=== PATIENT | female | born 1975 | race Caucasian/White ===

== ENCOUNTER 2019-10-20 15:54 | Emergency (ER) | payer OTHER, SELFPAY ==
[2019-10-20 16:16] VITALS: BP 131/85; PULSE 109; RESP 18; TEMP 36.9; O2SAT 100
--- NOTE | 2019-10-20 16:17 | ED.URI ---
HPI - URI/Sore Throat General Chief Complaint: Upper Respiratory Infection Stated Complaint: aches fever cough Time Seen by Provider: 10/20/19 16:17 Source: patient and RN notes reviewed History of Present Illness HPI Narrative: Patient is a 44-year-old female that presents the urgent care with complaints of body aches, fever, cough. Patient states that her symptoms started yesterday and she has been using ibuprofen and Coricidin. Patient is a current smoker. States that her cough is mostly nonproductive and denies any wheezing or shortness of breath. No other acute complaints. No acute distress noted. Patient read the plan of care. Related Data Home Medications Medication Instructions Recorded Confirmed simvastatin 10/20/19 venlafaxine 10/20/19 Allergies Allergy/AdvReac Type Severity Reaction Status Date / Time naproxen Allergy Unknown Verified 10/20/19 16:35 NAPROXEN SODIUM Allergy Unknown Uncoded 10/20/19 16:35 Review of Systems Review of Systems: Narrative: CONSTITUTIONAL: Reports a fever EYES: Denies visual changes, redness, or discharge. ENT: Denies rhinorrhea, congestion, sore throat, or otalgia. CARDIOVASCULAR: Denies chest pain, palpitations, or edema. RESPIRATORY: Reports of dry cough without dyspnea GASTROINTESTINAL: Denies abdominal pain, nausea, vomiting, or diarrhea. GENITOURINARY: Denies dysuria or hematuria. SKIN: Denies rash or itching. MUSCULOSKELETAL: Denies back pain, joint pain; reports of body aches NEUROLOGIC: Denies headache, numbness, or weakness. All other systems reviewed are negative, except as documented in HPI. [facility] Social History Social History Gender identity (if verbalized by the patient): Female Comments At the time of my signature, I reviewed and agree with the nursing past medical, surgical, social, and family history. There is no relevant family history pertinent to the patient complaint. Exam Narrative: Exam Narrative: GENERAL: This is a well-nourished, well-developed patient, appears slightly fatigued HEAD: normocephalic, atraumatic. EYES: PERRL. Sclera clear/white. Vision is grossly intact. EARS: External ears normal, auditory canals clear and without drainage, TMs normal without perforation. Hearing grossly intact. NOSE: External nose normal with no obvious nasal discharge, nares without redness, clear rhinorrhea. THROAT: Mucous membranes moist, posterior pharynx clear. Mild postnasal drainage NECK: Neck supple, non-tender without lymphadenopathy CARDIOVASCULAR: Regular rate and rhythm without murmurs, gallops, or rubs. RESPIRATORY: Clear to auscultation. Breath sounds equal bilaterally. No wheezes, rales, or rhonchi. SKIN: warm, intact with no suspicious lesions or rash, good texture and turgor. NEURO: awake, alert, and oriented to person, place and time. There were no obvious focal neurologic abnormalities. EXTREMITIES: No clubbing, cyanosis, or edema. Course Vital Signs Vital signs: Vital Signs Temperature 98.5 F 10/20/19 16:16 Pulse Rate 109 H 10/20/19 16:16 Respiratory Rate 18 10/20/19 16:16 Blood Pressure 131/85 10/20/19 16:16 Pulse Oximetry 100 10/20/19 16:16 Temperature 98.5 F 10/20/19 16:16 Pulse Rate 109 H 10/20/19 16:16 Respiratory Rate 18 10/20/19 16:16 Blood Pressure 131/85 10/20/19 16:16 Pulse Oximetry 100 10/20/19 16:16 Reviewed MDM - URI/Sore Throat MDM Narrative Medical decision making narrative: Reviewed lab results with the patient. She is aware that influenza swab was negative. Advised patient to treat symptoms with yenm-aln-hnndoqo medication such as Robitussin/Delsym for cough, Claritin for allergy-like symptoms, Flonase for nasal congestion, Tylenol/Motrin for fever/body aches. Increase fluids, especially water and rest. Use a humidifier. Be aware of symptoms of dehydration such as lethargy, confusion, increased weakness, dry lips, dry eyes. Follow-up with PCP within 2-5 days or for worsening
== END 2019-10-20 17:01 | disposition home or self-care (01) ==
PROVIDERS: Emergency Provider Nurse Practitioner Family
DX: J06.9 Acute upper respiratory infection, unspecified (principal); E78.00 Pure hypercholesterolemia, unspecified; F41.9 Anxiety disorder, unspecified; F32.9 Major depressive disorder, single episode, unspecified
CPT/HCPCS: 87804; 99202; G0463

== ENCOUNTER 2023-05-24 07:49 | Outpatient (CLI) | payer OTHER, SELFPAY | END 2023-05-24 07:50 | disposition home or self-care (01) | DX: H65.491 Other chronic nonsuppurative otitis media, right ear (principal) | CPT/HCPCS: 92557; 92567 ==

== ENCOUNTER 2024-10-23 18:57 | Emergency (ER) | payer OTHER, SELFPAY ==
[2024-10-23 19:04] VITALS: BP 147/82; PULSE 109; RESP 18; TEMP 36.6; O2SAT 100
--- OUTSIDE RECORDS SUMMARY | 2024-10-23 19:10 | XMS_ITS | Clinical Summary ---
Author Organization [facility] Address [address] [place] [address] Phone Care Team Providers Care Aluminum Pool Installer Name Role Phone Unavailable Unavailable Unavailable Reason for Visit and Chief Complaint GENERAL OFFICE VISIT Plan of Treatment No Plan of Treatment Recorded Assessments Includes: Assessments from this encounter No Assessments Recorded Medical Equipment - Implanted Devices Includes: Current Devices No Medical Equipment Recorded Medications Administered Includes: Administered Medications from this encounter No Administered Medications Recorded Results Includes: Results discussed during this encounter No Results Recorded For Specified Dates History of Present Illness Includes: History of Present Illness from this encounter No History of Present Illness Recorded Social History No Social History Recorded - Smoking Status Unknown Medical History Includes: Medical History addressed during this encounter No Medical History Recorded Family History Includes: Family History addressed during this encounter No Family History Recorded Review of Systems Includes: Review of Systems from this encounter No Review of Systems Recorded Mental Status Includes: Mental Status from this encounter No Mental Status Recorded Functional Status Includes: Functional Status from this encounter No Functional Status Recorded Physical Exam Includes: Physical Exam from this encounter No Physical Exam Recorded Encounters Encounter Provider Location Date Check-In Time Check- Out Time Diagnosis GENERAL OFFICE VISIT [facility] 0 2:05PM 11:59PM Clinical Notes Includes: Clinical Notes from this encounter No Clinical Notes Recorded
--- OUTSIDE RECORDS SUMMARY | 2024-10-23 19:10 | XMS_ITS ---
Care Plan - [facility] Created on: October 23, 2024 GUIDO BAUTISTA : 1975 Sex: Female Author Organization [facility] Address [address] [place] [address] Phone Care Team Providers Care Bleach Maker Name Role Phone Unavailable Unavailable Unavailable
--- OUTSIDE RECORDS SUMMARY | 2024-10-23 19:10 | XMS_ITS | Clinical Summary ---
Author Organization [facility] Address [address] [place] [address] Phone Care Team Providers Care General Manager [employer] Name Role Phone Unavailable Unavailable Unavailable Reason [...] Out Time Diagnosis GENERAL OFFICE VISIT [facility] 0 9:30AM 11:59PM Clinical Notes Includes: Clinical Notes from this encounter No Clinical Notes Recorded
--- OUTSIDE RECORDS SUMMARY | 2024-10-23 19:10 | XMS_ITS ---
Author Organization [facility] Address [address] [place] [address] Phone Care Team Providers Care Technical Sales Engineer Name Role Phone Unavailable Unavailable Unavailable Plan of Treatment No Plan of Treatment Recorded Assessments Includes: Assessments for all patient encounters No Assessments Recorded Medical Equipment - Implanted Devices Includes: Current and historical Devices No Medical Equipment Recorded Medications Administered Includes: Administered Medications in patient's chart No Administered Medications Recorded Results Includes: Results from 10/24/2023 through 10/23/2024 No Results Recorded For Specified Dates History of Present Illness History of Present Illness not supported for this document type No History of Present Illness Recorded Social History No Social History Recorded - Smoking Status Unknown Medical History Includes: Medical History in patient's chart No Medical History Recorded Family History Includes: Family History in patient's chart No Family History Recorded Review of Systems Review of Systems not supported for this document type No Review of Systems Recorded Mental Status No Mental Status Recorded Functional Status No Functional Status Recorded Physical Exam Physical Exam not supported for this document type No Physical Exam Recorded Clinical Notes Includes: Signed Clinical Notes starting from 09/02/2022 No Clinical Notes Recorded
--- OUTSIDE RECORDS SUMMARY | 2024-10-23 19:10 | XMS_ITS | Clinical Summary ---
Author Organization [facility] Address [address] [place] [address] Phone Care Team Providers Care Customer Relationship Specialist Name Role Phone Mikey Jones MD Primary Care Provider Unavaila ble Allergies No known active allergies Medications QUEtiapine (SEROquel) 25 MG Tablet Take 25 mg by mouth 2 times daily. Active Social History Tobacco Use Types Packs/Day Years Used Date Smoking Tobacco: Never Assessed Comments No Sex and Gender Information Value Date Recorded Sex Assigned at Not on file Legal Sex Female 7:54 PM CDT Gender Identity Not on file Sexual Orientation Not on file Last Filed Vital Signs Vital Sign Reading Time Taken Comments Blood Pressure 108/70 11/10/2023 4:15 AM CDT Pulse 97 11/10/2023 4:15 AM CDT Temperature 35.9 C (96.7 F) 11/09/2023 11:59 PM CDT Respiratory Rate 15 11/10/2023 2:15 AM CDT Oxygen Saturation 96% 11/10/2023 4:15 AM CDT Inhaled Oxygen Concentration - - Weight 50.8 kg (112 lb) 11/09/2023 11:59 PM CDT Height 157.5 cm (5' 2 ) 11/09/2023 11:59 PM CDT Body Mass Index 20.49 11/09/2023 11:59 PM CDT Plan of Treatment Health Maintenance Due Date Last Done Comments Hepatitis C Virus (HCV) Screening 1975 Hepatitis B Immunization (1 of 3 - 19+ 3-dose series) 1993 Pap Smear 1995 Cervical Cancer Screening (CCS) 01/18/2004 HPV/Cotest 01/18/2004 Cologuard 01/18/2024 Immunochemical Fecal Occult Blood 01/18/2024 Zoster Immunization (1 of 2) 01/18/2024 Influenza Immunization (#1) 04/14/20242 12/2022, 05/24/2022, 05/19/2021, Additional history exists SARS-COV-2 Immunization ( season) 2024 08/21/2021, 11/02/2020, 09/22/2020 Mammogram 05/06/2024 05/06/2023, 04/14, 04/14/2021, Additional history exists Pneumococcal Immunization (50+ years) (3 of 3 - PCV20 or PCV21) 06/14/2024 06/14/2019, 05/21/2018 Colonoscopy 01/30/2033 01/30/2023 Colorectal Cancer Screening 01/30/2033 Respiratory Syncytial Virus (RSV) Immunization (Adult) (1 - 1-dose 75+ series) 2049 01/30/2023 DTaP/Tdap/Td Immunization Discontinued 06/26/2018 TdaP Immunization Completed 06/26/2018 Pneumococcal Immunization Combined Discontinued 06/14/2019, 05/21/2018 Discussion re Starting/Frequency of Mammograms Discontinued 05/06/2023, 04/23/2022, 04/14/2021, Additional history exists Meningococcal Immunization (ACWY) Aged Out No longer eligible based on patient's age to complete this topic Rotavirus Immunization Aged Out No lo nger eligible based on patient's age to complete this topic Procedures Procedure Name Priority Date/Time Associated Diagnosis Comments LIBBY SCREENING CHLOE W IMPL DIGITAL W CAD W MARIO Routine 03/22/2019 8:35 AM CDT Visit for screening mammogram from Last 3 Months or Most Recently Relevant to Health Maintenance Results * LIBBY SCREENING CHLOE W IMPL DIGITAL W CAD W MARIO (03/22/2019 8:35 AM CDT) Anatomical Region Laterality Modality breast Bilateral Mammography 03/22/2019 7:56 AM CDT Narrative 03/22/2019 4:02 PM CDT - LIBBY SCREENING CHLOE W IMPL DIGITAL W CAD W MARIO BILATERAL DIGITAL SCREENING MAMMOGRAM 3D/2D WITH CAD WITH MEDIOLATERAL OBLIQUE CRANIOCAUDAL WITH AUGMENTATION: 03/22/2019 The study was acquired using digital technology and interpreted from soft copy. Current study was also evaluated with ICAD version 7.2. CLINICAL: Routine screening. Patient has no complaints. No personal history of cancer. Maternal cousin had breast cancer. COMPARISONS: Comparison is made to exams dated: 03/16/2018, 07/20/2016, and 02/24/2015 [facility]. BREAST TISSUE:The tissue of both breasts is heterogeneously dense. This may lower the sensitivity of mammography. FINDINGS: Bilateral breast implants are stable and intact. No significant masses, calcifications, or other findings are seen in either breast. There has been no significant interval change. IMPRESSION: BI-RAD 1 NEGATIVE There is no mammographic evidence of malignancy. A 1 year screening mammogram is recommended. The patient has been or will be contacted. The patient will be entered into a reminder system with a target due date of 1 year for her next screening exam. Electronically signed by: Tg vickers/darrel:03/22/2019 13:23:47 Allergist/Immunologist Physician: Siena TIPTON)([place]), [facility] letter sent: Normal Exam Reading location: [facility] BI-RADS: 1 Negative Procedure Note Tg Galeano MD - 03/22/2019 - LIBBY SCREENING CHLOE W IMPL DIGITAL W CAD W MARIO BILATERAL DIGITAL SCREENING MAMMOGRAM 3D/2D WITH CAD WITH MEDIOLATERAL OBLIQUE CRANIOCAUDAL WITH AUGMENTATION: 03/22/2019 The study was acquired using digital technology and interpreted from soft copy. Current study was also evaluated with ICAD version 7.2. CLINICAL: Routine screening. Patient has no complaints. No personal history of cancer. Maternal cousin had breast cancer. COMPARISONS: Comparison is made to exams dated: 03/16/2018, 07/20/2016, and 02/24/2015 [facility]. BREAST TISSUE:The tissue of both breasts is heterogeneously dense. This may lower the sensitivity of mammography. FINDINGS: Bilateral breast implants are stable and intact. No significant masses, calcifications, or other findings are seen in either breast. There has been no significant interval change. IMPRESSION: BI-RAD 1 NEGATIVE There is no mammographic evidence of malignancy. A 1 year screening mammogram is recommended. The patient has been or will be contacted. The patient will be entered into a reminder system with a target due date of 1 year for her next screening exam. Electronically signed by: Tg vickers/darrel:03/22/2019 13:23:47 Allergist/Immunologist Physician: Siena SALAZAR(R)(M), [facility] letter sent: Normal Exam Reading location: [facility] BI-RADS: 1 Negative Mikey Jones MD IMG MAMMO ORDERABLES Final Resu lt from Last 3 Months or Most Recently Relevant to Health Maintenance Insurance [employer] Care Teams Customer Relationship Specialist Relationship Specialty Start Date End Date Mikey Jones MD [address] [place] [id number] PCP - General Internal Medicine 03/16/18
--- OUTSIDE RECORDS SUMMARY | 2024-10-23 19:11 | XMS_ITS | Referral Summary ---
Author Organization [facility] Building [address] Address [address] [place] [address] Care Team Providers Care Director Business Management Name Role Phone Alvarez Galvez Primary Care Provider Encounters Date Type Department Care Team Description 08/26/2024 Orders Only [facility] Medical [facility] at [address] [place] [id number] Alvarez Galvez PA Need for hepatitis C screening test (Primary Dx); B12 deficiency; Vitamin D deficiency; Primary hypertension; Hyperlipidemia, unspecified hyperlipidemia type 08/26/2024 1:30 PM MEDICAL SCIENTIST Office Visit [facility] Medical [facility] at [address] [phone] Alvarez Galvez PA Generalized anxiety disorder (Primary Dx); Bullous emphysema (HCC); Recurrent major depressive disorder, in full remission; Pure hypercholesterolemia; Primary hypertension; Vitamin D deficiency; Tobacco abuse from Last 3 Months Allergies Active Allergy Reactions Criticality Noted Date Comments Citalopram Other (See comments) Low 09/14/2017 Increased anxiety; shakiness; dizziness. Naproxen Rash,Other (See comments),Urticaria Medium Reaction: ERYTHEMA, , , Reaction: Rash, , Medications cholecalciferol (VITAMIN D-3) 2000 unit capsule 05/14/20 22 Active ipratropium-albut Jyoti (DUO-NEB) 0.5-2.5 mg/3 mL nebulizer solutionIndicatio ns:Chronic Obstructive Pulmonary Disease with Bronchospasms Take 3 mL by nebulization 4 (four) times a day as needed for wheezing or shortness of breath 90 mL 11 11/18/19 23 Active albuterol HFA (PROVENTIL HFA,VENTOLIN HFA,PROAIR HFA) 90 mcg/actuation inhaler INHALE 2 PUFFS NEEDED FOR WHEEZING OR SHORTNESS OF BREATH 8.5 each 11 05/30/20 24 025 Active venlafaxine XR (EFFEXOR-XR) 150 mg 24 hr capsule TAKE 1 CAPSULE BY MOUTH EVERY DAY 90 capsule 3 07/15/20 24 Active busPIRone (BUSPAR) 7.5 mg tabletIndications :Generalized Anxiety Disorder Take 1 tablet (7.5 mg total) by mouth 2 (two) times a day Active losartan (COZAAR) 25 mg tablet Take 1 tablet (25 mg total) by mouth daily 90 tablet 3 08/26/19 25 026 Active atorvastatin (LIPITOR) 40 mg tablet Take 1 tablet (40 mg total) by mouth daily 90 tablet 3 08/26/19 25 Active Active Problems Problem Noted Date Diagnosed Date Dysfunction of both eustachian tubes 07/08/2024 Assessment & Plan (07/08/2024 1:36 PM MEDICAL SCIENTIST): Offered continued observation versus T-tube removal today in the Office Right T-tube removed today If Right ear pain persists after the next three days, call Dentist office for evaluation or call for physical therapy referral for neck Follow up in 9 months for Left ear tube check Sleep disturbance 11/14/2023 Assessment & Plan (11/15/2023 6:17 AM CDT): -chronic, worsening -currently takes 25 mg of Seroquel nightly -patient reports she does not believe the Seroquel is helping as much as it used to -patient reports she will wake up multiple times a night -likely associated with increased anxiety, will trial increased dose of Seroquel to see how patient tolerates larger dose -increase Seroquel to 50 mg nightly -follow up in 1 month Chronic otitis media of right ear with effusion 03/31/2023 Assessment & Plan (03/31/2023 8:52 AM CDT): Nasal saline spray (Simply saline, Little Remedies, [place]wick, Jarratt) 2 second sprays or 2 squeezes into each nostril while looking down over the sink, do not need to sniff in. Followed by Flonase 2 sprays into each nostril while looking down over the sink, do not sniff in or blow nose after use for at least 30 minutes daily Hearing test [facility] Call with results plan Right myringotomy with T-tube placement in Office or Operating Room Consider CT temporal bone scan based on results Memory loss 03/14/2022 Assessment & Plan (03/14/2022 3:15 PM CDT): Check b12 adsn referal to neuro for eval some degreee of depressoin and trreated and but clear that is at faluult. Snores 09/13/2021 Assessment & Plan (09/13/2021 1:57 PM MEDICAL SCIENTIST): Stay off back idealy get studied as has some qualities of sleep apnea. The morning fatigue and this can become a pernmanent feature that is not reversable oral mough pieces anoointernet to javi into wear shirt with tennis ball to criss off back at night a trick Neuropathic pain, leg, left 09/13/2021 Assessment & Plan (09/13/2021 2:03 PM MEDICAL SCIENTIST): Intermittent l calf hot then gone Had n cuttock in past. No pain no timing not wrose ask to pay attentino what setoff or refilef. Referral neuro when wants /willing IGT (impaired glucose tolerance) 09/13/2021 Assessment & Plan (03/14/2022 3:15 PM CDT): a1c at 5.4 Assessment & Plan (09/13/2021 6:01 PM MEDICAL SCIENTIST): Fasting 106 and check a1c on return Orthostatic hypotension 05/03/2021 Assessment & Plan (09/13/2021 1:54 PM MEDICAL SCIENTIST): Stable and rarely aware of nl tsh and nl cortisol Assessment & Plan (05/03/2021 3:51 PM CDT): Takes Water And eat all meals os some kind. Check cortixol .tsh cmp labs and see if suppport helps. Asks to wait and if not doing well then call to seetup early and see Cervical spine pain 05/03/2021 Assessment & Plan (05/03/2021 3:47 PM CDT): Snap crackle pop and pain with moveing ask to do self pt with pressing against hand and not ving head cshould help formal pt if need but thaty appears the headache at mid to higher c spine. Re maryal onruetnr Vitamin D deficiency 01/12/2021 Assessment & Plan (03/14/2022 3:14 PM CDT): waw 6 and now 41 start 1-1999 a day and check onreutrn and bring in what taking Assessment & Plan (09/13/2021 2:04 PM MEDICAL SCIENTIST): Stay on oand check Assessment & Plan (01/12/2021 3:31 PM CDT): Start 100 mg vit d and check on return Osteopenia of neck of femur 09/09/2020 Assessment & Plan (09/09/2020 3:55 PM MEDICAL SCIENTIST): Check d on reutrn labs to confirm nl. Tobacco abuse 05/20/2020 Assessment & Plan (08/26/2024 9:59 AM MEDICAL SCIENTIST): The patient was advised to quit smoking; the risks of continued tobacco use discussed. Assessment & Plan (06/28/2024 5:37 PM MEDICAL SCIENTIST): The patient was advised to quit smoking; the risks of continued tobacco use discussed. Assessment & Plan (03/19/2024 9:58 AM CDT): The patient was advised to quit smoking; the risks of continued tobacco use discussed. Assessment & Plan (09/15/2023 1:49 PM MEDICAL SCIENTIST): Continue cessation. Commended on her efforts Assessment & Plan (03/14/2023 12:51 PM CDT): She was advised to quit smoking; the risks of continued tobacco use discussed. Assessment & Plan (12/23/2022 10:43 AM CDT): The patient was advised to quit smoking; the risks of continued tobacco use discussed. Assessment & Plan (11/07/2022 12:31 PM CDT): She was advised to quit smoking; the risks of continued tobacco use discussed. Assessment & Plan (10/21/2022 10:28 AM MEDICAL SCIENTIST): She was advised to quit smoking; the risks of continued tobacco use discussed. Assessment & Plan (09/14/2022 8:51 AM MEDICAL SCIENTIST): She was advised to quit smoking; the risks of continued tobacco use discussed. Assessment & Plan (04/15/2022 9:20 AM CDT): She was advised to quit smoking; the risks of continued tobacco use discussed. Assessment & Plan (03/03/2021 12:32 PM CDT): She was advised to quit smoking; the risks of continued tobacco use discussed. Assessment & Plan (09/15/2020 10:27 AM MEDICAL SCIENTIST): She was advised to quit smoking; the risks of continued tobacco use discussed. Assessment & Plan (09/09/2020 3:48 PM MEDICAL SCIENTIST): Active smoker Assessment & Plan (08/11/2020 8:09 AM MEDICAL SCIENTIST): She was advised to quit smoking; the risks of continued tobacco use discussed. Menopause 04/09/2020 Assessment & Plan (09/09/2020 3:49 PM MEDICAL SCIENTIST): Progressive hot flashes in a n active smoker .higher ascvd risk with Hormone replacments and smoking the stain can reduce risk to some etent but not known how much otc vegitable sub for hormones can helpsuch s black cohash. sooy products but With possible hormone benefits and side effects the eeffexor is likely having some suppressor effects on the hot flashes but not enough Assessment & Plan (04/09/2020 3:49 PM CDT): Check bmd the week bedforfe with labs Right ear pain 02/26/2019 Assessment & Plan (07/08/2024 1:34 PM MEDICAL SCIENTIST): Right T-tube removed today If Right ear pain persists after the next three days, call Dentist office for evaluation or call for physical therapy referral for neck Follow up in 9 months for Left ear tube check Assessment & Plan (06/14/2019 3:57 PM CDT): Referred pain and tmj but no infection Assessment & Plan (02/26/2019 2:33 PM CDT): Nl ear but tmj source pain Gastroesophageal reflux disease without esophagi tis 02/26/2019 Assessment & Plan (06/14/2019 3:56 PM CDT): gerd breaktkhru 2 times a week Assessment & Plan (03/12/2019 8:42 AM CDT): Cnt. With current Zantac. Smoking cessation encouraged. Avoidance of EtOH use, and dietary modifications also advised Assessment & Plan (02/26/2019 2:35 PM CDT): blockup head of bed. lilmit acids. Denies carbonation. Limit fats. Consider zantac to start and work up as needeed. Hypertension 01/29/2019 Assessment & Plan (08/26/2024 9:58 AM MEDICAL SCIENTIST): Recommend DASH diet, heart healthy lifestyle, exercise. Discussed the risks of hypertension. Assessment & Plan (03/19/2024 7:14 AM CDT): Recommend DASH diet, heart healthy lifestyle, exercise. Discussed the risks of hypertension. Assessment & Plan (02/19/2024 12:52 PM CDT): Recommend DASH diet, heart healthy lifestyle, exercise. Discussed the risks of hypertension. Assessment & Plan (09/15/2023 12:24 PM MEDICAL SCIENTIST): Recommend DASH diet, heart-healthy lifestyle, exercise. Discussed the risks of hypertension. Assessment & Plan (03/14/2023 12:51 PM CDT): Recommend DASH diet, heart-healthy lifestyle, exercise. Discussed the risks of hypertension. Assessment & Plan (12/23/2022 10:43 AM CDT): Recommend DASH diet, heart healthy lifestyle, exercise. Discussed the risks of hypertension. Assessment & Plan (10/21/2022 10:28 AM MEDICAL SCIENTIST): Recommend DASH diet, heart-healthy lifestyle, exercise. Discussed the risks of hypertension. Assessment & Plan (09/14/2022 8:51 AM MEDICAL SCIENTIST): Recommend DASH diet, heart-healthy lifestyle, exercise. Discussed the risks of hypertension. Assessment & Plan (03/14/2022 3:16 PM CDT): bp good and keep same Hypertension, Medical treament revolves around weight control, salt management, and meds when necessary. long as weight loss is necessary and you are able to drop weight we can cont to monitor the blood pressure and not add meds. Once the weight is not changing then it becomes nesessary to add meds to be able to reach the goal bp. Assessment & Plan (09/13/2021 1:53 PM MEDICAL SCIENTIST): The bp Ok and keep stable . Hypertension, Medical treament revolves around weight control, salt management, and meds when necessary. long as weight loss is necessary and you are able to drop weight we can cont to monitor the blood pressure and not add meds. Once the weight is not changing then it becomes nesessary to add meds to be able to reach the goal bp. Assessment & Plan (03/03/2021 12:32 PM CDT): Recommend DASH diet, heart-healthy lifestyle, exercise. Discussed the risks of hypertension. Assessment & Plan (01/12/2021 3:32 PM CDT): tahe bp high nl and monitor and adjust if stays up on reutrnHypertension, Medical treament revolves around weight control, salt management, and meds when necessary. long as weight loss is necessary and you are able to drop weight we can cont to monitor the blood pressure and not add meds. Once the weight is not changing then it becomes nesessary to add meds to be able to reach the goal bp. Assessment & Plan (09/09/2020 3:50 PM MEDICAL SCIENTIST): bp controlled and self montior and Cont diet and wt limitsHypertension, Medical treament revolves around weight control, salt management, and meds when necessary. long as weight loss is necessary and you are able to drop weight we can cont to monitor the blood pressure and not add meds. Once the weight is not changing then it becomes nesessary to add meds to be able to reach the goal bp. Assessment & Plan (08/11/2020 8:08 AM MEDICAL SCIENTIST): Recommend DASH diet, heart-healthy lifestyle, exercise. Discussed the risks of hypertension. Assessment & Plan (04/09/2020 3:46 PM CDT): bp good and no chagdsHypertension, Medical treament revolves around weight control, salt management, and meds when necessary. long as weight loss is necessary and you are able to drop weight we can cont to monitor the blood pressure and not add meds. Once the weight is not changing then it becomes nesessary to add meds to be able to reach the goal bp. Assessment & Plan (01/07/2020 3:43 PM CDT): Well c ontrolled and no changesHypertension, Medical treament revolves around weight control, salt management, and meds when necessary. long as weight loss is necessary and you are able to drop weight we can cont to monitor the blood pressure and not add meds. Once the weight is not changing then it becomes nesessary to add meds to be able to reach the goal bp. Assessment & Plan (12/16/2019 3:06 PM CDT): Controlled and monitgor Assessment & Plan (06/14/2019 3:56 PM CDT): bp controll and no cohangs Assessment & Plan (05/06/2019 1:58 PM CDT): Stop loisinopril for now and if need bp meds then dyazide Assessment & Plan (03/12/2019 8:43 AM CDT): Normotensive, much improved over last 5 weeks of therapy. Pt was encouraged to Cnt. With current dosing of lisinopril. Repeat CMP in 3 weeks prior to CPE. Encouraging low-fat, dash diet, mild to moderate daily exercise, working toward smoking cessation. Assessment & Plan (02/26/2019 2:33 PM CDT): bp dramatically beter with only la little meds and stay onHypertension, Medical treament revolves around weight control, salt management, and meds when necessary. long as weight loss is necessary and you are able to drop weight we can cont to monitor the blood pressure and not add meds. Once the weight is not changing then it becomes nesessary to add meds to be able to reach the goal bp. Assessment & Plan (01/29/2019 8:48 AM CDT): The bp stress test jumped to 1989 and several bp since highn. Start low dose meds with lisinopril 2.5 and adjust up as needed. Seeing a htn reponce to stress and should push backHypertension, Medical treament revolves around weight control, salt management, and meds when necessary. long as weight loss is necessary and you are able to drop weight we can cont to monitor the blood pressure and not add meds. Once the weight is not changing then it becomes nesessary to add meds to be able to reach the goal bp. Benign paroxysmal positional vertigo due to bilateral vestibular disorder 05/21/2018 Assessment & Plan (05/06/2019 1:57 PM CDT): Stop salt Inner ear movement canalith repositioning off lisinopri in case need to start dyazide Assessment & Plan (05/21/2018 9:13 AM CDT): Periodica short spells of vertigo.not chanagingl not done the inner ear exercises. Bullous emphysema 12/20/2017 Assessment & Plan (09/13/2021 1:55 PM MEDICAL SCIENTIST): Ongoing smoker and aware of need to quit Assessment & Plan (09/09/2020 3:52 PM MEDICAL SCIENTIST): Fall flu shots and cont to smoke and worsen the risk Assessment & Plan (04/09/2020 3:45 PM CDT): Altaf with fvc 102 ands fev`1 92 and fev1% 75 nl. [id number] 65 and demo's [id number] defectg Assessment & Plan (01/07/2020 3:42 PM CDT): Still smoking and finds br eo helpful understands the need to Quit. Assessment & Plan (12/16/2019 3:04 PM CDT): Post viral bronchial flair. quiting smoking moset likeoy only good answer and will ing and plans to quit. Proposal pred pulse and amoxil for short stent and re eval in 4-6 wks post quit. smputum camples and Ct if Still cough not miles. Assessment & Plan (06/14/2019 4:49 PM CDT): Sp;iro at fvc 83 and fev1 62 with fev1% 63. 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 .took flu shot already. Given the underlying lung issue will suggest pneumonia shots and take botho. p13 now and 23 in a yr Assessment & Plan (04/19/2018 9:40 AM CDT): quiting important but not going to work until nerves settled. So await better nerves before quiting Assessment & Plan (12/20/2017 5:07 PM CDT): Once nerves controlled . Quit smoking. Check altaf. Prior llung collapse. Fall flu shots and p 13 and 23. Had p23 2010 and neeeds 2012 now and tony get later on. p23 repeat probably 2020 +- Pure hypercholesterolemia 12/20/2017 Assessment & Plan (08/26/2024 9:58 AM MEDICAL SCIENTIST): Counseled on heart diet exercise Assessment & Plan (03/19/2024 7:14 AM CDT): Counseled on heart diet exercise Assessment & Plan (09/13/2021 6:02 PM MEDICAL SCIENTIST): On meds and needs labs on return Assessment & Plan (01/12/2021 3:31 PM CDT): ldl at 79 and keep here And stay onYour cholesterol in the form of ldl (bad) cholesterol,hdl(good) cholesterol and triglycerides are monitored. The triglycerides respond to reduction/controll of your simple carbs/sugars In such items as sugared soda/sweet tea along with fruit juices(containing natural sugar) even if no added sugar is added. LDL cholesterol is reduced with reducing daily intake of fats and dionisio. saturated fats. The monosaturated fats like olive oil are not harmful except in the calories they contained. Whole milk cheese needs to be remembered along with whole milk products And limited. Assessment & Plan (09/09/2020 3:51 PM MEDICAL SCIENTIST): ldl at 99 and on 20 atorvastin . Given active smoker would sugeste pushinghte ldl to lower and go to 40 on atorvasitn if Tolerates. Your cholesterol in the form of ldl (bad) cholesterol,hdl(good) cholesterol and triglycerides are monitored. The triglycerides respond to reduction/controll of your simple carbs/sugars In such items as sugared soda/sweet tea along with fruit juices(containing natural sugar) even if no added sugar is added. LDL cholesterol is reduced with reducing daily intake of fats and dionisio. saturated fats. The monosaturated fats like olive oil are not harmful except in the calories they contained. Whole milk cheese needs to be remembered along with whole milk products And limited. Assessment & Plan (04/09/2020 3:45 PM CDT): ldl at 93 and wihtout c.o and cont meds as onYour cholesterol in the form of ldl (bad) cholesterol,hdl(good) cholesterol and triglycerides are monitored. The triglycerides respond to reduction/controll of your simple carbs/sugars In such items as sugared soda/sweet tea along with fruit juices(containing natural sugar) even if no added sugar is added. LDL cholesterol is reduced with reducing daily intake of fats and dionisio. saturated fats. The monosaturated fats like olive oil are not harmful except in the calories they contained. Whole milk cheese needs to be remembered along with whole milk products And limited. Assessment & Plan (01/07/2020 3:45 PM CDT): Switch to atorvastin 20 and tony expect ot need to go up .Your cholesterol in the form of ldl (bad) cholesterol,hdl(good) cholesterol and triglycerides are monitored. The triglycerides respond to reduction/controll of your simple carbs/sugars In such items as sugared soda/sweet tea along with fruit juices(containing natural sugar) even if no added sugar is added. LDL cholesterol is reduced with reducing daily intake of fats and dionisio. saturated fats. The monosaturated fats like olive oil are not harmful except in the calories they contained. Whole milk cheese needs to be remembered along with whole milk products And limited. Assessment & Plan (12/16/2019 3:05 PM CDT): ldl at 150 and wqnt lower but if quits then focus on controlling chol. Your cholesterol in the form of ldl (bad) cholesterol,hdl(good) cholesterol and triglycerides are monitored. The triglycerides respond to reduction/controll of your simple carbs/sugars In such items as sugared soda/sweet tea along with fruit juices(containing natural sugar) even if no added sugar is added. LDL cholesterol is reduced with reducing daily intake of fats and dionisio. saturated fats. The monosaturated fats like olive oil are not harmful except in the calories they contained. Whole milk cheese needs to be remembered along with whole milk products And limited. Assessment & Plan (06/14/2019 3:54 PM CDT): ldl up with missing some meds and tony not change Assessment & Plan (01/29/2019 8:49 AM CDT): The ldl at 108 and droped and leave for now. Look given risk to tighten over time once stop move bp medsYour cholesterol in the form of ldl (bad) cholesterol,hdl(good) cholesterol and triglycerides are monitored. The triglycerides respond to reduction/controll of your simple carbs/sugars In such items as sugared soda/sweet tea along with fruit juices(containing natural sugar) even if no added sugar is added. LDL cholesterol is reduced with reducing daily intake of fats and dionisio. saturated fats. The monosaturated fats like olive oil are not harmful except in the calories they contained. Whole milk cheese needs to be remembered along with whole milk products And limited. Assessment & Plan (09/24/2018 8:19 AM MEDICAL SCIENTIST): ldl at 131 and target to drp given ongoing smomking and isolated old white mater change. willgo to 20 mg and try to push to Or below 100.Your cholesterol in the form of ldl (bad) cholesterol,hdl(good) cholesterol and triglycerides are monitored. The triglycerides respond to reduction/controll of your simple carbs/sugars In such items as sugared soda/sweet tea along with fruit juices(containing natural sugar) even if no added sugar is added. LDL cholesterol is reduced with reducing daily intake of fats and dionisio. saturated fats. The monosaturated fats like olive oil are not harmful except in the calories they contained. Whole milk cheese needs to be remembered along with whole milk products And limited. Assessment & Plan (05/21/2018 9:15 AM CDT): ldl at 129 and less then 130 nl. Watch dietYour cholesterol in the form of ldl (bad) cholesterol,hdl(good) cholesterol and triglycerides are monitored. The triglycerides respond to reduction/controll of your simple carbs/sugars In such items as sugared soda/sweet tea along with fruit juices(containing natural sugar) even if no added sugar is added. LDL cholesterol is reduced with reducing daily intake of fats and dionisio. saturated fats. The monosaturated fats like olive oil are not harmful except in the calories they contained. Whole milk cheese needs to be remembered along with whole milk products And limited. Assessment & Plan (12/20/2017 4:19 PM CDT): ldl to 120 and as on 5mg would go to 10 to controll at les then 100. Your cholesterol in the form of ldl (bad) cholesterol,hdl(good) cholesterol and triglycerides are monitored. The triglycerides respond to reduction/controll of your simple carbs/sugars In such items as sugared soda/sweet tea along with fruit juices(containing natural sugar) even if no added sugar is added. LDL cholesterol is reduced with reducing daily intake of fats and dionisio. saturated fats. The monosaturated fats like olive oil are not harmful except in the calories they contained. Whole milk cheese needs to be remembered along with whole milk products And limited. 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 Talks with dental provides for tricks. Generalized anxiety disorder 09/12/2017 Assessment & Plan (11/15/2023 6:20 AM CDT): -chronic, worsening -patient currently takes 150 mg Effexor daily -patient reports new stressors in life including new job and new grandchild on the way -patient reports her increased anxiety is not constant, but it comes and goes -patient previously took Xanax in the past for anxiety, but she states she did not like how it made her feel so she weaned herself off -BuSpar 7.5 mg b.i.d. as needed prescribed Assessment & Plan (10/13/2017 3:04 PM MEDICAL SCIENTIST): Patient has noted improvement in anxiety, depression, and episodes of panic attacks. She would like to trial higher dose of venlafaxine and evaluate her response. She has previously been very sensitive to medications and in lieu of sending and 75 mg tablet she is going to start by taking two 37.5 mg tablets and evaluating her response. If she tolerates 75 mg without ill side effects she was encouraged to call us back so we can send in adequate supply of medications. Patient is due for refill on her Xanax she has been able to cut back from 3 tablets daily to 1.5 tablets daily. For these reasons, I am going to decrease her script from 90 tablets to 60 tablets. We will continue to evaluate her response to treatment. Her intent is to wean off the Xanax completely. She was congratulated on her efforts thus far. Assessment & Plan (09/12/2017 2:32 PM MEDICAL SCIENTIST): Patient is currently taking Xanax 0.5 mg 3 times daily for her chronic anxiety and panic attacks. We discussed the addictive this of this medication. She understands that we attempt to avoid routine use of this medication. Patient states she does not like being on the medication. She states she has never tried anything for her anxiety other than the Xanax as that is what her prior primary care provider had given her. She is not adverse to weaning off of this medication as she states, I feel like a drug addict when people find out I'm on it . I would like to get her citalopram to a therapeutic dose and so she will wait 2 weeks before attempting to begin to wean her Xanax. Initially, she is encouraged to take half a tablet 3 times daily. We will discuss further weaning when she returns for follow-up in 1 month. She is encouraged to contact the office in the interim with any additional questions or concerns. Resolved Problems Problem Noted Date Diagnosed Date Resolved Date Edema of both lower legs 02/19/202403/2024 Assessment & Plan (02/19/2024 3:33 PM CDT): Will send over Lasix 20mg daily for leg swelling. Have patient return for BNP in one week Acute midline low back pain without sciatica 02/19/2024 Acute recurrent maxillary sinusitis 06/23/2023 09/15/2023 Assessment & Plan (06/23/2023 1:18 PM MEDICAL SCIENTIST): Call if no improvement in muffled hearing in 6 weeks Ear tube check in 9 months, earlier with ear drainage Encounter for screening colonoscopy 12/16/2022 09/15/2023 Abnormal EKG 10/26/2022 09/15/2023 Hyperlipidemia 10/26/2022 09/15/2023 Chest wall syndrome 12/02/2021 10/22/19 Assessment & Plan (12/02/2021 2:55 PM CDT): Point tender post r And ant . Trial lidocaine patch possible referral to pt reji blunt. Urine dip neg for blood or abn nothing to suport renal cause for pain as well as not in correct Place and Point tender Aleve optnio pt optins and use lidcaine patch trial and call if Feels workis Carpal tunnel syndrome of right wrist 12/10/2020 01/24/2022 Cubital tunnel syndrome on right 12/10/2020 01/24/2022 Viral upper respiratory tract infection 09/24/2018 02/26/2019 Assessment & Plan (09/24/2018 8:20 AM MEDICAL SCIENTIST): Suggest reg use of flonase to try to get to clear faster and help with ears. No ear infectgoni. Light headed 04/19/2018 03/14/2023 Assessment & Plan (05/03/2021 3:39 PM CDT): discriptoin of light headed with tunnelling of visoin not to skip adan fluid Regularly Wear suppoort hose and leave on during day. Suggest saling fods. Assessment & Plan (04/19/2018 9:42 AM CDT): Trial inner ear exercises PE (physical exam), annual 12/20/2017 0 01/24/2022 Assessment & Plan (09/13/2021 2:02 PM MEDICAL SCIENTIST): Fadi up to date early for colon . Got flu shots and covid shiots. Up to date on tetnus . Consider referaql to neuro for r calk numb Assessment & Plan (09/09/2020 3:54 PM MEDICAL SCIENTIST): Keeps wt controlled Colon no due yet. Fadi up to date. Fall flu lshots. tetnus up to da te. repet bmd in 18 months to tract mild osteopenia Assessment & Plan (12/20/2017 4:20 PM CDT): Screening labs good. Cont well woman exam and can do here if wish. Watch sun to heavey dose. Fall flu shots and getthe 2 pneumonia shots. Consider the dtap for pertussis protectino. Hand dermatitis 12/20/2017 05/21/2018 Assessment & Plan (12/20/2017 4:22 PM CDT): Trial steroid cream and moisterizers. And limit soap. Skin lesion 12/20/2017 05/21/2018 Assessment & Plan (12/20/2017 4:23 PM CDT): Put ruler against and take pic and m onitor and if things changes then take you.pic and derm to eval for differences. Thoracic back pain 11/08/2017 8 Assessment & Plan (11/08/2017 3:25 PM CDT): Chest x-ray ordered office today in order to evaluate for presence of pneumothorax with inhalation exhalation supine study. I recommended that will call patient regarding results of testing if that tonight and tomorrow to let her know if there is a concern pneumothorax. I actually advised patient that she may be best going to ER but she declined at this time as she wants to 1st to this chest x-ray to rule out pneumothorax and move forward with other testing. Certainly if symptoms do get worse over night she will go to ER as was clinically recommended. In the interim I recommended limiting upper extremity exercises or weight-bearing anything beyond 5 lb. Will follow-up regarding results of testing if pneumothorax as noted, she will be instructed to go to ER for further evaluation and management I did advise her that if chest x-ray is negative for pneumothorax and no abnormalities were found will follow-up with her here in the office, complete a T-spine x-ray to look it any thoracic dislocations or subluxations of any sort, try NSAID [id number] an along with stretching/he denies application BMI 21.0-21.9, adult 11/08/2017 024 Assessment & Plan (11/14/2023 11:39 AM CDT): Wt Readings from Last 3 Encounters: 11/14/23 53.9 kg (118 lb 14.4 oz) 09/15/23 53.8 kg (118 lb 9.6 oz) 06/23/23 52.6 kg (116 lb) Body mass index is 21.74 kg/m . -Stable -Discussed recommendations for exercise at least 30 minutes moderate to vigorous exercise most days of the week. (minimum 150 minutes weekly) -Discussed importance of well-balanced diet. Assessment & Plan (09/13/2021 1:53 PM MEDICAL SCIENTIST): Keep wt stable Assessment & Plan (01/12/2021 3:34 PM CDT): Work to [facility] stable Assessment & Plan (04/09/2020 3:44 PM CDT): Stable and stay here Assessment & Plan (01/07/2020 3:46 PM CDT): Work to keep wt stable Assessment & Plan (12/16/2019 3:07 PM CDT): Work to hold a bout same Assessment & Plan (06/14/2019 3:55 PM CDT): Stable wt Assessment & Plan (01/29/2019 8:52 AM CDT): Work to keep wt stable Assessment & Plan (04/19/2018 9:40 AM CDT): Work to keep wt stable Assessment & Plan (12/20/2017 4:17 PM CDT): Work to keep wt up Assessment & Plan (11/08/2017 3:22 PM CDT): Recommended patient to continue to increase heart healthy diet with adequate fruits, vegetables, and plenty of water along with mild-moderate daily exercise as tolerated. Moderate episode of recurren t major depressive disorder 09/12/2017 08/26/2024 Assessment & Plan (03/14/2022 3:16 PM CDT): On meds and stay wiht Assessment & Plan (09/13/2021 1:54 PM MEDICAL SCIENTIST): Well controlled with meds and keep same Assessment & Plan (01/12/2021 3:28 PM CDT): Things worrse and not tolerating down short fuse not sleeping at all trial low dose seroquel as adjuct to night and keep effexor on as on. 1/2 of 25 For wk then a ful if neded and can swork up to both 25 at night or split during ronna and re assess in 5-6 wks Assessment & Plan (04/09/2020 3:43 PM CDT): Well controlled on omeds. And stay Assessment & Plan (01/07/2020 3:47 PM CDT): Working on meds and stay with Assessment & Plan (12/16/2019 3:05 PM CDT): depresion controlled and cont meds Assessment & Plan (06/14/2019 3:55 PM CDT): meds working well Assessment & Plan (01/29/2019 8:49 AM CDT): Well controlled and no changes Assessment & Plan (09/24/2018 8:18 AM MEDICAL SCIENTIST): Rare need for a 2nd cuspar and otherwise feels stable. Cont meds Assessment & Plan (05/21/2018 9:16 AM CDT): depressino controlled and increase the buspar to help. With anxiuety Assessment & Plan (04/19/2018 9:41 AM CDT): .stay on effexor and add buspar and start with a 1/3 pill and work up as neded and tolerated. At some time referfral to psych to help if not controlled. Stress test taking you to your max was neg and no irr heart beats of signs of arterial disease. For now stay on othe atenolol, Assessment & Plan (12/20/2017 4:36 PM CDT): .improving and effexor helped but appears still short of needs and tony try 150 as next step in meds. If further hdop then cut last xanax in 1/2 and then work off. reasess 3-5 wks. Depending on what se. Consider adding buspar or other boster's. celexa no as not liked it Assessment & Plan (10/13/2017 3:04 PM MEDICAL SCIENTIST): Patient has noted improvement in anxiety, depression, and episodes of panic attacks. She would like to trial higher dose of venlafaxine and evaluate her response. She has previously been very sensitive to medications and in lieu of sending and 75 mg tablet she is going to start by taking two 37.5 mg tablets and evaluating her response. If she tolerates 75 mg without ill side effects she was encouraged to call us back so we can send in adequate supply of medications. Patient is due for refill on her Xanax she has been able to cut back from 3 tablets daily to 1.5 tablets daily. For these reasons, I am going to decrease her script from 90 tablets to 60 tablets. We will continue to evaluate her response to treatment. Her intent is to wean off the Xanax completely. She was congratulated on her efforts thus far. Assessment & Plan (09/12/2017 2:30 PM MEDICAL SCIENTIST): Patient suffers from anxiety, depression, and panic attacks. I have recommended the addition of citalopram. Initially she will start with half a tablet (10mg) for 1 week. Then, she will increase to a full tablet (20 mg). After 2 weeks on medication she will begin to attempt to wean her Xanax. She is currently taking 3 tablets daily. Initially, she will attempt to cut these in half and take half a tablet 3 times daily. We will continue to wean her further when she returns for follow-up in 1 month. She was encouraged to reach out to us in the interim with any additional questions or concerns. Immunizations Immunization Administration Dates Next Due Flucelvax Influenza Quad 05/08/2023,09/2021(Deferred: Patient Refused) Influenza, Quadrivalent, Spl it, Preservative Free, Intramuscular 05/31/2016 Influenza, Split 05/14/2009 Influenza, Trivalent, IM (MDV) 5,05/28/2014,05/14/2013,05/28,05/31/2011 Influenza, Trivalent, Preser vative Free, Intramuscular 06/28/2024 Influenza, Unspecified 05/24/2022,2020,05/03/2021(Defer red: Patient Refused),05/19/2020,05/19/2020, 020(Deferred: Patient Refused),11/01/2019(Deferred: Patient ill today),05/06/2019(Deferred: Patient Refused - WILL GET @ WORK),05/15/2018 Moderna SARS-CoV-2 Monovalen t Vaccination (12+ YRS) 11/02/2020,09/22/2020 PPD TEST 05/21/2018 Pfizer SARS-CoV-2 Monovalent Vaccination (12+ Yrs) PURPLE 08/21/2021 Pneumococcal Conjugate PCV 13 05/21/2018 Pneumococcal Polysaccharide PPV23 06/14/2019 Tdap 06/26/2018 Social History Tobacco Use Types Packs/Day Years Used Date Smoking Tobacco: Every Day Cigarettes 1 20 Started: 08/19/2003; Last attempted to quit: 08/19/2023 Smokeless Tobacco: Never Tobacco Cessation:Ready to Q uit: Yes; Counseling Given: Yes Comments:Smoking History Packs/day: 0.5 Packs Alcohol Use Standard Drinks/Week Comments No 0 (1 standard drink = 0.6 oz pur e alcohol) AUDIT-C Answer Date Recorded Q1: How often do you have a drink containing alc ohol? 2-3 times a week 06/28/2024 Q2: How many drinks containi ng alcohol do you have on a typical day when you are drinking? 3 or 4 06/28/2024 Q3: How often do you have si x or more drinks on one occasion? Never 06/28/2024 PHQ-2 Answer Date Recorded PHQ-2 Total Score (If total score is 3 or more points, staff should administer the PHQ-9) 0 08/26/2024 Personal Safety Answer Date Recorded Have you ever been in or are you currently in a harmful physical or emotional relationship or is someone making you feel afraid or unsafe? Denies 06/15/2023 Comments No Sex and Gender Information Value Date Recorded Sex Assigned at Not on file Legal Sex Female 10:12 AM MEDICAL SCIENTIST Gender Identity Not on file Sexual Orientation Not on file Last Filed Vital Signs Vital Sign Reading Time Taken Comments Blood Pressure 136/82 08/26/2024 2:01 PM MEDICAL SCIENTIST Pulse 93 08/26/2024 1:42 PM MEDICAL SCIENTIST Temperature 36.7 C (98 F) 06/28/2024 2:59 PM MEDICAL SCIENTIST Respiratory Rate 16 08/26/2024 1:42 PM MEDICAL SCIENTIST Oxygen Saturation 98% 08/26/2024 1:42 PM MEDICAL SCIENTIST Inhaled Oxygen Concentration - - Weight 54.4 kg (120 lb) 08/26/2024 1:42 PM MEDICAL SCIENTIST Height 157.5 cm (5' 2.01 ) 08/26/2024 1:42 PM CS T Body Mass Index 21.94 08/26/2024 1:42 PM MEDICAL SCIENTIST Plan of Treatment Not on file Medical Devices Implanted 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 Device 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 Shelf Expiration Date Model / Serial / Lot [employer] 1.32mm 4.8mm Modify Ear T Tube Ventilation Ultrasil Sterile Blue [id number] - [id number] Implanted:Qty: 1 on 06/15/2023 by Nona Sewell DO at [facility] Left: Ear [employer] 04/04/2033 [id number] / / [id number] [employer] 1.32mm 4.8mm Modify Ear T Tube Ventilation Ultrasil Sterile Blue [id number] - [id number] Implanted:Qty: 1 on 06/15/2023 by Nona Sewell DO at [facility] [employer] 04/04/2033 [id number] / / [id number] Procedures Procedure Name Priority Date/Time Associated Diagnosis Comments VITAMIN B12 Routine 08/21/2024 7:37 AM MEDICAL SCIENTIST Annual physical exam B12 deficiency VITAMIN D 25 HYDROXY Routine 08/21/2024 7:37 AM MEDICAL SCIENTIST Annual physical exam Vitamin D deficiency CHOLESTEROL, LDL, DIRECT Routine 08/21/2024 7:37 AM MEDICAL SCIENTIST Annual physical exam COMPREHENSIVE METABOLIC PANEL Routine 08/21/2024 7:37 AM MEDICAL SCIENTIST Annual physical exam HEPATITIS B SURFACE ANTIGEN Routine 08/21/2024 7:37 AM MEDICAL SCIENTIST Need for hepatitis B screening test HEPATITIS B CORE ANTIBODY, TOTAL Routine 08/21/2024 7:37 AM MEDICAL SCIENTIST Need for hepatitis B screening test HEPATITIS B SURFACE ANTIBODY (IMMUNE STATUS) Routine 08/21/2024 7:37 AM MEDICAL SCIENTIST Need for hepatitis B screening test SCREENING MAMMOGRAM BILATERAL W ITALO W IMPLANTS Schedule Routine, Read Routine (OP Routine) 06/15/2024 9:15 AM CDT Screening mammogram, encounter for CT LUNG CANCER SCREENING Schedule Routine, Read Routine (OP Routine) 04/16/2024 12:15 PM CDT Former smoker COLONOSCOPY 01/30/2023 7:39 AM CDT from Last 3 Months or Most Recently Relevant to Health Maintenance Results * Hepatitis B core antibody, total Blood (08/21/2024 7:37 AM MEDICAL SCIENTIST) Pathologist [facility] Hep B core IgG/IgM NON-REACTI VE NON-REACTI VE [facility] Comment: For additional information, please refer to [email or web address] (This link is being provided for informational/ educational purposes only.) Blood 08/21/2024 7:37 AM MEDICAL SCIENTIST 08/21/2024 7:38 AM MEDICAL SCIENTIST Narrative [facility] - 08/22/2024 5:53 AM MEDICAL SCIENTIST FASTING:YES FASTING: YES [facility] - [facility] ORDERABLES Final Result [facility] [address] [place] [address] * Vitamin D 25 hydroxy (08/21/2024 7:37 AM MEDICAL SCIENTIST) Pathologist [facility] Vitamin D 25-OH 31 30 - 100 ng/mL [facility] Comment: Vitamin D Status 25-OH Vitamin D: Deficiency: <20 ng/mL Insufficiency: 20 - 29 ng/mL Optimal: > or = 30 ng/mL For 25-OH Vitamin D testing on patients on D2-supplementation and patients for whom quantitation of D2 and D3 fractions is required, the QuestAssureD(TM) 25-OH VIT D, (D2,D3), LC/MS/MS is recommended: order code 23839 (patients >2yrs). See Note 1 Note 1 For additional information, please refer to [email or web address] (This link is being provided for informational/ educational purposes only.) Blood 08/21/2024 7:37 AM MEDICAL SCIENTIST 08/21/2024 7:38 AM MEDICAL SCIENTIST Narrative [facility] - 08/22/2024 5:53 AM MEDICAL SCIENTIST FASTING:YES FASTING: YES [facility] BLOOD ORDERABLES Fi nal Result Performing Organization Address [facility]/ZIP Co de Phone Number [facility] [address] [place] [address] * Hepatitis B surface antibody (immune status) Blood (08/21/2024 7:37 AM MEDICAL SCIENTIST) HBsAb (immune status) NON-REACTI VE NON-REACTI VE [facility] Blood 08/21/2024 7:37 AM MEDICAL SCIENTIST 08/21/2024 7:38 AM MEDICAL SCIENTIST Narrative [facility] - 08/22/2024 5:53 AM MEDICAL SCIENTIST FASTING:YES FASTING: YES [facility] - [facility] ORDERABLES Final Result Performing Organization Address [facility] de Phone Number [facility] [address] [place] [address] * Hepatitis B Surface Antigen Blood (08/21/2024 7:37 AM MEDICAL SCIENTIST) HepBsAg NON-REACTI VE NON-REACTI VE [facility] Comment: For additional information, please refer to [email or web address]/MEK758 (This link is being provided for informational/ educational purposes only.) Blood 08/21/2024 7:37 AM MEDICAL SCIENTIST 08/21/2024 7:38 AM MEDICAL SCIENTIST Narrative [facility] - 08/22/2024 5:53 AM MEDICAL SCIENTIST FASTING:YES FASTING: YES Result [facility] - GENE RAL ORDERABLES Final Result Performing Organization Address [facility] Co de Phone Number [facility] [address] [place] [address] * (ABNORMAL) Cholesterol, LDL, direct (08/21/2024 7:37 AM MEDICAL SCIENTIST) Pathologist [facility] LDL, direct 103(H) <100 mg/dL [facility] Comment: Desirable range <100 mg/dL for primary prevention; <70 mg/dL for patients with CHD or diabetic patients with > or = 2 CHD risk factors. Blood 08/21/2024 7:37 AM MEDICAL SCIENTIST 08/21/2024 7:38 AM MEDICAL SCIENTIST Narrative [facility] - 08/22/2024 5:53 AM MEDICAL SCIENTIST FASTING:YES FASTING: YES [facility] BLOOD ORDERABLES Fi nal Result Performing Organization Address City/[facility] Co de Phone Number [facility] [address] [place] [address] * Vitamin B12 (08/21/2024 7:37 AM MEDICAL SCIENTIST) [facility] Vitamin B12 468 200 - 1,100 pg/mL [facility] Blood 08/21/2024 7:37 AM MEDICAL SCIENTIST 08/21/2024 7:38 AM MEDICAL SCIENTIST Narrative [facility] - 08/22/2024 5:53 AM MEDICAL SCIENTIST FASTING:YES FASTING: YES [facility] BLOOD ORDERABLES Fi nal Result Performing Organization Address City/[facility] Co de Phone Number [facility] [address] [place] [address] * Comprehensive metabolic panel (08/21/2024 7:37 AM MEDICAL SCIENTIST) Pathologist [facility] Glucose 82 65 - 99 mg/dL [facility] Comment: Fasting reference interval BUN 10 7 - 25 mg/dL [facility] Creatinine 0.67 0.50 - 1.03 mg/dL [facility] eGFR 106 > OR = 60 mL/min/1. 73m2 [facility] BUN/creat ratio SEE NOTE: (calc) [facility] Comment: Not Reported: BUN and Creatinine are within reference range. Sodium 138 135 - 146 mmol/L [facility] Potassium, pl 4.3 3.5 - 5.3 mmol/L [facility] Chloride 105 98 - 110 mmol/L [facility] Comment: Greatly elevated Triglycerides values (>1200 mg/dL) interfere with the dLDL assay. CO2 26 20 - 32 mmol/L [facility] Calcium 9.8 8.6 - 10.4 mg/dL [facility] Protein, sr 7.2 6.1 - 8.1 g/dL [facility] Albumin 4.6 3.6 - 5.1 g/dL [facility] GLOBULIN 2.6 1.9 - 3.7 g/dL (calc) [facility] Alb/glob ratio 1.8 1.0 - 2.5 (calc) [facility] Bilirubin, total 0.5 0.2 - 1.2 mg/dL [facility] Alk phos 71 37 - 153 U/L [facility] AST 18 10 - 35 U/L [facility] ALT (SGPT) 15 6 - 29 U/L [facility] Blood 08/21/2024 7:37 AM MEDICAL SCIENTIST 08/21/2024 7:38 AM MEDICAL SCIENTIST Narrative [facility] - 08/22/2024 5:53 AM MEDICAL SCIENTIST FASTING:YES FASTING: YES [facility] BLOOD ORDERABLES Fi nal Result [facility] [address] [address] * Screening Mammogram Bilateral W [place] W Implants (06/15/2024 9:15 AM CDT) Anatomical Region Laterality Modality Breast Bilateral Mammography 06/17/2024 11:3 4 AM MEDICAL SCIENTIST Impressions 06/17/2024 11:34 AM MEDICAL SCIENTIST There is no mammographic evidence of malignancy. A 1 year screening mammogram is recommended. BI-RADS: 1 - Negative. The patient has been or will be contacted. The patient will be entered into a reminder system with a target due date of 1 year for her next mammogram. Electronically signed by: Neyda Koch M.D. Narrative 06/17/2024 11:34 AM MEDICAL SCIENTIST EXAMINATION: SCREENING MAMMOGRAM BILATERAL W ITALO W IMPLANTS ORDERING HEALTHCARE PROVIDER: SELF SCREENING MAMMOGRAM HISTORY: Routine screening mammography. COMPARISON: 05/06/2023, 05/03/2022, 04/23/2022, 04/14/2021, 04/13/2020, 03/22/2019 TECHNIQUE: CC and MLO views of the bilateral breasts were obtained with implant in view and implant displaced views with digital technique using breast tomosynthesis with C view. Computer aided detection was utilized. FINDINGS: DENSITY: There are scattered areas of fibroglandular density. BREASTS: There are bilateral subpectoral implants. There are no suspicious masses, suspicious calcifications, or other suspicious findings in either breast. There has been no suspicious interval change. us Self Screening Mammogram IMG MAMMO PROCEDURES Fi nal Result * CT Lung Cancer Screening (04/16/2024 12:15 PM CDT) Anatomical Region Laterality Modality Chest N/A Computed Tomogra phy 04/17/2024 8:20 AM CDT Narrative 04/17/2024 8:27 AM CDT EXAM DESCRIPTION: CT LUNG CANCER SCREENING REASON FOR STUDY: Screening CT of the chest in a current smoker with a 30 pack year smoking history. Additional history: None. TECHNIQUE: Low dose CT scan of the chest was performed without intravenous contrast using helical scanning technique. The exam extends from the lung apices through the lung bases. Automatic exposure control was used as a dose optimization technique. NOTE: This study was performed for the specific purposes of lung cancer screening and is not an alternative to diagnostic chest CT. RADIATION DOSE: CT dose index volume (CTDIvol) = 1.18 mGy COMPARISON: CT chest 04/05/2010 FINDINGS: SMOKING RELATED LUNG DISEASE: There is paraseptal pulmonary emphysema and biapical scarring. LUNG NODULES: There are small right upper lobe subpleural nodules, for example 3 mm subpleural right upper lobe nodules (axial image 53). CORONARY ARTERY CALCIFICATION: None. OTHER: Curvilinear radiodensity likely representing surgical change in the right lung apex. Normal heart size. No mediastinal or hilar lymph node enlargement by size criteria. Bilateral breast implants. No acute findings in the visualized upper abdomen. No acute skeletal abnormality. IMPRESSION: Small right upper lobe pulmonary nodules. Pulmonary emphysema. Lung-RADS category 2: Benign appearance or behavior. Recommendation: Low dose Screening CT of chest in 12 months. THIS IS AN ELECTRONICALLY VERIFIED FINAL REPORT 04/17/2024 8:27 AM - Electronically signed by Cosmo Cruz M.D. JR: Report ID: [id number] Reading Location: [id number] Procedure Note Cosmo Cruz MD - 04/17/2024 EXAM DESCRIPTION: CT LUNG CANCER SCREENING REASON FOR STUDY: Screening CT of the chest in a current smoker with a30 pack year smoking history. Additional history: None. TECHNIQUE: Low dose CT scan of the chest was performed without intravenous contrast using helical scanning technique. The exam extends from the lung apices through the lung bases. Automatic exposure control was used as adose optimization technique. NOTE: This study was performed for the specific purposes of lung cancer screening and is not an alternative to diagnostic chest CT. RADIATION DOSE: CT dose index volume (CTDIvol) = 1.18 mGy COMPARISON: CT chest 04/05/2010 FINDINGS: SMOKING RELATED LUNG DISEASE: There is paraseptal pulmonary emphysemaand biapical scarring. LUNG NODULES: There are small right upper lobe subpleural nodules, for example 3 mm subpleural right upper lobe nodules (axial image 53). CORONARY ARTERY CALCIFICATION: None. OTHER: Curvilinear radiodensity likely representing surgical change inthe right lung apex. Normal heart size. No mediastinal or hilar lymph node enlargement by size criteria. Bilateral breast implants. No acutefindings in the visualized upper abdomen. No acute skeletal abnormality. IMPRESSION: Small right upper lobe pulmonary nodules. Pulmonary emphysema. Lung-RADS category 2: Benign appearance or behavior. Recommendation: Low dose Screening CT of chest in 12 months. THIS IS AN ELECTRONICALLY VERIFIED FINAL REPORT 04/17/2024 8:27 AM - Electronically signed by Cosmo Cruz M.D. JR: JR Report ID: [id number] Reading Location: [id number] [facility] IMG CT PROCEDURES Final Result * COLONOSCOPY (01/30/2023 7:39 AM CDT) Anatomical Region Laterality Modality Other Narrative Procedure Note Claudia Ibrahim MD - 01/30/2023 7:39 AM CDT [facility] Patient Name: Guido Bustillo Procedure Date: 01/30/2023 7:39 AM Date of : 1975 Admit Type: Outpatient Age: 48 Gender: Female Attending MD: Claudia Ibrahim M.D. Room: [facility] ENDOSCOPY ROOM 3 Note Status: Finalized Patient Profile: This is a 48 year old female hx of depression, hypertension, HLD, COPD, tobacco use disorder herefor colonoscopy. No family history of colon cancer. Procedure: Colonoscopy Indications: Screening for colorectal malignant neoplasm, Thisis the patient's first colonoscopy Referring MD: Alvarez Galvez, CHER Providers: Claudia Ibrahim M.D. Impression: - Perianal skin tags found on perianal exam. - One 5 mm polyp in the transverse colon, removedwith a cold snare. Resected and retrieved. - One 3 mm polyp in the transverse colon, removedwith a jumbo cold forceps. Resected and retrieved. - One 3 mm polyp in the rectum, removed with ajumbo cold forceps. Resected and retrieved. - Congested mucosa with mucosal sloughing in the sigmoid colon and in the descending colon.Biopsied. - Internal hemorrhoids. Recommendation: - Patient has a contact number available for emergencies. The signs and symptoms of potential delayed complications were discussed with thepatient. Return to normal activities tomorrow. Written discharge instructions were provided to thepatient. - Discharge patient to home (with escort). - Resume previous diet. - Continue present medications. - Await pathology results. - Repeat colonoscopy in 3 years for surveillancebased on pathology results. - Return to primary care physician as previously scheduled. Medicines: Monitored Anesthesia Care Complications: No immediate complications. Estimated Blood Loss: Estimated blood loss was minimal. Procedure: Pre-Anesthesia Assessment: - Prior to the procedure, a History and Physicalwas performed, and patient medications and allergieswere reviewed. The patient is competent. The risks and benefits of the procedure and the sedation optionsand risks were discussed with the patient. Allquestions were answered and informed consent was obtained. Patient identification and proposed procedure were verified by the physician, the tin container straightener and the statistical technician in the endoscopy suite. Mental Status Examination: normal. Prophylactic Antibiotics: The patient does not require prophylactic antibiotics. Prior Anticoagulants: The patient has taken no anticoagulant or antiplatelet agents. Afterreviewing the risks and benefits, the patient was deemed in satisfactory condition to undergo the procedure.The anesthesia plan was to use monitored anesthesiacare (MAC). Immediately prior to administration of medications, the patient was re-assessed foradequacy to receive sedatives. The heart rate, respiratory rate, oxygen saturations, blood pressure, adequacyof pulmonary ventilation, and response to care were monitored throughout the procedure. The physical status of the patient was re-assessed after the procedure. The benefits, risks and alternatives of theprocedure and sedation were discussed and informed consentwas obtained. All questions were answered. Please referto the signed informed consent document in the medical record. The bowel preparation used was Miralax via split dose instruction. The bowel preparation usedwas bisacodyl tablets via split dose instruction. The scope was passed under direct vision. The Pediatric Colonoscope [id number]-[id number] was introducedthrough the anus and advanced to the the cecum, identifiedby appendiceal orifice and ileocecal valve. The scopewas passed under direct vision. The Wide Endoscope [id number] was introduced through theanus and advanced to the the cecum, identified by appendiceal orifice and ileocecal valve. The colonoscopy was performed without difficulty. The patient tolerated the procedure well. The qualityof the bowel preparation was adequate. Bowel prep was administered using a split dose. Findings: Skin tags were found on perianal exam. A 5 mm polyp was found in the transverse colon. The polyp wassessile. The polyp was removed with a cold snare. Resection and retrieval were complete. A 3 mm polyp was found in the transverse colon. The polyp wassessile. The polyp was removed with a jumbo cold forceps. Resection andretrieval were complete. A 3 mm polyp was found in the rectum. The polyp was flat. The polypwas removed with a jumbo cold forceps. Resection and retrieval werecomplete. An area of mildly congested and erythematous mucosa with mucosal sloughing was found in the sigmoid and descending colon. This was biopsied with a cold forceps for histology. Internal hemorrhoids were found during retroflexion. Claudia Ibrahim M.D. 01/30/2023 9:39:15 AM Number of Addenda: 0 Note Initiated On: 01/30/2023 7:39 AM Procedure Code(s): --- Professional --- 61758, Colonoscopy, flexible; with removal of tumor(s), polyp(s), or other lesion(s) by snare technique 31558, 59, Colonoscopy, flexible; with biopsy, single or multiple --- Technical --- 89635, Colonoscopy, flexible; with removal of tumor(s), polyp(s), or other lesion(s) by snare technique 70544, 59, Colonoscopy, flexible; with biopsy, single or multiple Diagnosis Code(s): --- Professional --- Z12.11, Encounter for screening for malignant neoplasm of colon D12.3, Benign neoplasm of transverse colon (hepatic flexure orsplenic flexure) D12.8, Benign neoplasm of rectum K63.89, Other specified diseases of intestine K64.8, Other hemorrhoids K64.4, Residual hemorrhoidal skin tags --- Technical --- Z12.11, Encounter for screening for malignant neoplasm of colon D12.3, Benign neoplasm of transverse colon (hepatic flexure orsplenic flexure) D12.8, Benign neoplasm of rectum K63.89, Other specified diseases of intestine K64.8, Other hemorrhoids K64.4, Residual hemorrhoidal skin tags CPT copyright 2020 [employer]. All rights reserved. The codes documented in this report are preliminary and upon packaging engineer reviewmay be revised to meet current compliance requirements. Recognized by the [employer] for promoting quality in endoscopy Claudia Ibrahim MD ENDOSCOPY PROCEDURES Final Resul t from Last 3 Months or Most Recently Relevant to Health Maintenance Insurance [facility] HMO [employer] [facility] Advance Directives For more information, please contact: [phone] * Full Code (Latest Code Status on File) Date Activated Date Inactivated Comments 01/30/2023 7:44 AM 01/30/2023 2:16 PM * Full Code Date Activated Date Inactivated Comments 01/30/2023 7:44 AM 01/30/2023 7:44 AM Care Teams Director Business Management Relationship Specialty Start Date End Date Alvarez Galvez PA [address] [place] [address] [place] [address] PCP - General Internal Medicine 05/11/22
--- OUTSIDE RECORDS SUMMARY | 2024-10-23 19:11 | XMS_ITS ---
Author Organization Unknown Medications Medication Instructions Effective Dates (start - stop) Status 24 HR venlafaxine 150 MG Ext ended Release Oral Capsule - Completed quetiapine 25 MG Oral Tablet [id number] 0:00:00Z - Completed quetiapine 25 MG Oral Tablet [id number] 0:00:00Z - Completed quetiapine 25 MG Oral Tablet [id number] 0:00:00Z - Completed losartan potassium 25 MG Ora l Tablet - Completed 24 HR venlafaxine 150 MG Ext ended Release Oral Capsule - Completed buspirone hydrochloride 7.5 MG Oral Tablet - Completed - - Compl eted losartan potassium 25 MG Ora l Tablet - Completed buspirone hydrochloride 7.5 MG Oral Tablet - Completed atorvastatin 40 MG Oral Tablet 2024-01-21 T00:00:00Z - Completed - - Compl eted quetiapine 25 MG Oral Tablet [id number] 0:00:00Z - Completed buspirone hydrochloride 7.5 MG Oral Tablet - Completed quetiapine 25 MG Oral Tablet [id number] 0:00:00Z - Completed - - Compl eted 24 HR venlafaxine 150 MG Ext ended Release Oral Capsule - Completed Patient Care team information Name Category Status Period Participants - - Proposed period not known -
--- OUTSIDE RECORDS SUMMARY | 2024-10-23 19:11 | XMS_ITS | Clinical Summary ---
[facility] Address [address] [place] [address] Care Team Providers Care Center Machine Set Up Operator Name Role Phone Alvarez Galvez Primary Care Provider Allergies Active Allergy Reactions Criticality Noted Date [...] 07/08/2024 Assessment & Plan (07/08/2024 1:36 PM HUMAN CAPITAL MANAGER): Offered continued observation versus T-tube removal today [...] Nasal saline spray (Simply saline, Little Remedies, [place], [place]) 2 second sprays or 2 squeezes into each nostril while looking down over the sink, do not need to sniff in. Followed by Flonase 2 sprays into each nostril while looking down over the sink, do not sniff in or blow nose after use for at least 30 minutes daily Hearing test [facility] Audiology Call with results plan Right myringotomy with T-tube placement in Office or Operating Room Consider CT temporal bone scan based on results Memory loss 03/14/2022 Assessment & Plan (03/14/2022 3:15 PM CDT): Check b12 adsn referal to neuro for eval some degreee of depressoin and trreated and but clear that is at faluult. Snores 09/13/2021 Assessment & Plan (09/13/2021 1:57 PM HUMAN CAPITAL MANAGER): Stay off back idealy get studied as has some qualities of sleep apnea. The morning fatigue and this can become a pernmanent feature that is not reversable oral mough pieces anoointernet to javi into wear shirt with tennis ball to criss off back at night a trick Neuropathic pain, leg, left 09/13/2021 Assessment & Plan (09/13/2021 2:03 PM HUMAN CAPITAL MANAGER): Intermittent l calf hot then gone Had n cuttock in past. No pain no timing not wrose ask to pay attentino what setoff or refilef. Referral neuro when wants /willing IGT (impaired glucose tolerance) 09/13/2021 Assessment & Plan (03/14/2022 3:15 PM CDT): a1c at 5.4 Assessment & Plan (09/13/2021 6:01 PM HUMAN CAPITAL MANAGER): Fasting 106 and check a1c on return Orthostatic hypotension 05/03/2021 Assessment & Plan (09/13/2021 1:54 PM HUMAN CAPITAL MANAGER): Stable and rarely aware of nl tsh [...] at mid to higher c spine. Re eval onruetnr Vitamin D deficiency 01/12/2021 Assessment & Plan (03/14/2022 3:14 PM CDT): waw 6 and now 41 start a day and check onreutrn and bring in what taking Assessment & Plan (09/13/2021 2:04 PM HUMAN CAPITAL MANAGER): Stay on oand check Assessment & Plan (01/12/2021 3:31 PM CDT): Start 100 mg vit d and check on return Osteopenia of neck of femur 09/09/2020 Assessment & Plan (09/09/2020 3:55 PM HUMAN CAPITAL MANAGER): Check d on reutrn labs to confirm nl. Tobacco abuse 05/20/2020 Assessment & Plan (08/26/2024 9:59 AM HUMAN CAPITAL MANAGER): The patient was advised to quit smoking; the risks of continued tobacco use discussed. Assessment & Plan (06/28/2024 5:37 PM HUMAN CAPITAL MANAGER): The patient was advised to quit smoking; the risks of continued tobacco use discussed. Assessment & Plan (03/19/2024 9:58 AM CDT): The patient was advised to quit smoking; the risks of continued tobacco use discussed. Assessment & Plan (09/15/2023 1:49 PM HUMAN CAPITAL MANAGER): Continue cessation. Commended on her efforts Assessment [...] discussed. Assessment & Plan (10/21/2022 10:28 AM HUMAN CAPITAL MANAGER): She was advised to quit smoking; the risks of continued tobacco use discussed. Assessment & Plan (09/14/2022 8:51 AM HUMAN CAPITAL MANAGER): She was advised to quit smoking; the risks of continued tobacco use discussed. Assessment & Plan (04/15/2022 9:20 AM CDT): She was advised to quit smoking; the risks of continued tobacco use discussed. Assessment & Plan (03/03/2021 12:32 PM CDT): She was advised to quit smoking; the risks of continued tobacco use discussed. Assessment & Plan (09/15/2020 10:27 AM HUMAN CAPITAL MANAGER): She was advised to quit smoking; the risks of continued tobacco use discussed. Assessment & Plan (09/09/2020 3:48 PM HUMAN CAPITAL MANAGER): Active smoker Assessment & Plan (08/11/2020 8:09 AM HUMAN CAPITAL MANAGER): She was advised to quit smoking; the risks of continued tobacco use discussed. Menopause 04/09/2020 Assessment & Plan (09/09/2020 3:49 PM HUMAN CAPITAL MANAGER): Progressive hot flashes in a n active [...] 02/26/2019 Assessment & Plan (07/08/2024 1:34 PM HUMAN CAPITAL MANAGER): Right T-tube removed today If Right ear [...] 01/29/2019 Assessment & Plan (08/26/2024 9:58 AM HUMAN CAPITAL MANAGER): Recommend DASH diet, heart healthy lifestyle, exercise. Discussed the risks of hypertension. Assessment & Plan (03/19/2024 7:14 AM CDT): Recommend DASH diet, heart healthy lifestyle, exercise. Discussed the risks of hypertension. Assessment & Plan (02/19/2024 12:52 PM CDT): Recommend DASH diet, heart healthy lifestyle, exercise. Discussed the risks of hypertension. Assessment & Plan (09/15/2023 12:24 PM HUMAN CAPITAL MANAGER): Recommend DASH diet, heart-healthy lifestyle, exercise. Discussed the risks of hypertension. Assessment & Plan (03/14/2023 12:51 PM CDT): Recommend DASH diet, heart-healthy lifestyle, exercise. Discussed the risks of hypertension. Assessment & Plan (12/23/2022 10:43 AM CDT): Recommend DASH diet, heart healthy lifestyle, exercise. Discussed the risks of hypertension. Assessment & Plan (10/21/2022 10:28 AM HUMAN CAPITAL MANAGER): Recommend DASH diet, heart-healthy lifestyle, exercise. Discussed the risks of hypertension. Assessment & Plan (09/14/2022 8:51 AM HUMAN CAPITAL MANAGER): Recommend DASH diet, heart-healthy lifestyle, exercise. Discussed [...] bp. Assessment & Plan (09/13/2021 1:53 PM HUMAN CAPITAL MANAGER): The bp Ok and keep stable . [...] bp. Assessment & Plan (09/09/2020 3:50 PM HUMAN CAPITAL MANAGER): bp controlled and self montior and Cont [...] bp. Assessment & Plan (08/11/2020 8:08 AM HUMAN CAPITAL MANAGER): Recommend DASH diet, heart-healthy lifestyle, exercise. Discussed [...] 12/20/2017 Assessment & Plan (09/13/2021 1:55 PM HUMAN CAPITAL MANAGER): Ongoing smoker and aware of need to quit Assessment & Plan (09/09/2020 3:52 PM HUMAN CAPITAL MANAGER): Fall flu shots and cont to smoke and worsen the risk Assessment & Plan (04/09/2020 3:45 PM CDT): [place] with fvc 102 ands fev`1 92 and fev1% 75 nl. izn54-40 65 and demo's [id number] defectg Assessment & Plan (01/07/2020 3:42 PM [...] smoke Assessment & Plan (09/24/2018 8:18 AM HUMAN CAPITAL MANAGER): Smoking induced and retirement target to get off inhaled agents As [...] Once nerves controlled . Quit smoking. Check jesus alberto. Prior llung collapse. Fall flu shots and p 13 and 23. Had p23 2010 and neeeds 2012 now and tony get later on. p23 repeat probably 2020 +- Pure hypercholesterolemia 12/20/2017 Assessment & Plan (08/26/2024 9:58 AM HUMAN CAPITAL MANAGER): Counseled on heart diet exercise Assessment & Plan (03/19/2024 7:14 AM CDT): Counseled on heart diet exercise Assessment & Plan (09/13/2021 6:02 PM HUMAN CAPITAL MANAGER): On meds and needs labs on return [...] limited. Assessment & Plan (09/09/2020 3:51 PM HUMAN CAPITAL MANAGER): ldl at 99 and on 20 atorvastin [...] limited. 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 Assessment & Plan (09/12/2017 2:32 PM HUMAN CAPITAL MANAGER): Patient is currently taking Xanax 0.5 mg [...] 09/15/2023 Assessment & Plan (06/23/2023 1:18 PM HUMAN CAPITAL MANAGER): Call if no improvement in muffled hearing [...] 02/26/2019 Assessment & Plan (09/24/2018 8:20 AM HUMAN CAPITAL MANAGER): Suggest reg use of flonase to try [...] 01/24/2022 Assessment & Plan (09/13/2021 2:02 PM HUMAN CAPITAL MANAGER): Fadi up to date early for colon . Got flu shots and covid shiots. Up to date on tetnus . Consider referaql to neuro for r calk numb Assessment & Plan (09/09/2020 3:54 PM HUMAN CAPITAL MANAGER): Keeps wt controlled Colon no due yet. [...] or subluxations of any sort, try NSAID [id number] an along with stretching/he denies application BMI [...] diet. Assessment & Plan (09/13/2021 1:53 PM HUMAN CAPITAL MANAGER): Keep wt stable Assessment & Plan (01/12/2021 3:34 PM CDT): Work to [facility] stable Assessment & Plan (04/09/2020 3:44 [...] wiht Assessment & Plan (09/13/2021 1:54 PM HUMAN CAPITAL MANAGER): Well controlled with meds and keep same [...] changes Assessment & Plan (09/24/2018 8:18 AM HUMAN CAPITAL MANAGER): Rare need for a 2nd [place]us[place] and [...] further hdop then cut last xanax in 12 and then work off. reasess 3-5 wks. Depending on what se. Consider adding buspar or other boster's. celexa no as not liked it Assessment & Plan (10/13/2017 3:04 PM HUMAN CAPITAL MANAGER): Patient has noted improvement in anxiety, depression, [...] far. Assessment & Plan (09/12/2017 2:30 PM HUMAN CAPITAL MANAGER): Patient suffers from anxiety, depression, and panic [...] interim with any additional questions or concerns. Encounters Date Type Department Care Team Description 08/26/2024 1:30 PM HUMAN CAPITAL MANAGER Office Visit [facility] Medical [facility] Primary Care at [address] [place] [phone] Alvarez Galvez PA Generalized anxiety disorder (Primary Dx); Bullous emphysema (HCC); Recurrent major depressive disorder, in full remission; Pure hypercholesterolemia; Primary hypertension; Vitamin D deficiency; Tobacco abuse 08/26/2024 Orders Only [facility] Primary Care at [address] [place] [phone] Alvarez Galvez PA Need for hepatitis C screening test (Primary Dx); B12 deficiency; Vitamin D deficiency; Primary hypertension; Hyperlipidemia, unspecified hyperlipidemia type from Last 3 Months Immunizations Immunization Administration Dates Next Due Flucelvax [...] 05/21/2018 Pneumococcal Polysaccharide PPV23 06/14/2019 Tdap 06/26/2018 Surgical History Surgery Date Site/Laterality Comments AUGMENTATION MAMMOPLASTY 08/14/2003 - 08/13/2004 augmentation mammoplasty OTHER SURGICAL HISTORY Pneumothorax: surgery for blebs LUNG REMOVAL, PARTIAL Right HYSTERECTOMY CARPAL TUNNEL RELEASE 08/14/2019 - 08/13/2020 Right ULNAR NERVE TRANSPOSITION 08/14/2019 - 08/13/2020 Right Medical History Medical History Date Comments Hx Other Medical 2010 Pneumothorax Hx Other Medical reflux; Comment s: patient dx with silent reflux, patient had scope and cookie swallow done Hx Other Medical vision Hypercholesterolemia High choles terol; Comments: DLN 12/22/2016 - Smoking Lung disease PONV (postoperative nausea and vomiting) Carpal tunnel syndrome of right wrist 12/10/2020 Cubital tunnel syndrome on right Hypertension Anxiety Family History Medical History Relation Name Comments Coronary artery disease Father Aishwarya nary artery disease; Hyperlipidemia Father Hyperlipidemi a; Hypertension Father Hypertension; Other Father Alive and well; /Cancer -rectal; Ovarian cancer Maternal Grandmother Breast cancer Maternal cousin 1 Breast cancer Maternal cousin 2 Breast cancer Maternal cousin 3 Asthma Mother Asthma; Diabetes Mother Diabetes mellit us; Hyperlipidemia Mother Hyperlipidemi a; Hypertension Mother Hypertension; Osteoporosis Mother Osteoporosis; Other Mother Alive and well; Polycythemia Mother Relation Name Status Comments Cousin 1 Maternal Alive Cousin 2 Maternal Alive Cousin 3 Maternal Alive Father Alive Maternal Grandmother Maternal cousin 1 Maternal cousin 2 Alive Maternal cousin 3 Alive Mother Alive Social History Tobacco Use Types Packs/Day Years [...] on file Legal Sex Female 10:12 AM HUMAN CAPITAL MANAGER Gender Identity Not on file Sexual Orientation Not on file Obstetrics History Para Term AB IAB SAB Ectopic Multiple Livin g Live Births 3 2 2 Date Outcome GA Total Labor Labor/2nd/3rd Weight Sex Type Anes PTL Erin A1 A5 Name Clin Term Term Last Filed Vital Signs Vital Sign Reading Time Taken Comments Blood Pressure 136/82 08/26/2024 2:01 PM HUMAN CAPITAL MANAGER Pulse 93 08/26/2024 1:42 PM HUMAN CAPITAL MANAGER Temperature 36.7 C (98 F) 06/28/2024 2:59 PM HUMAN CAPITAL MANAGER Respiratory Rate 16 08/26/2024 1:42 PM HUMAN CAPITAL MANAGER Oxygen Saturation 98% 08/26/2024 1:42 PM HUMAN CAPITAL MANAGER Inhaled Oxygen Concentration - - Weight 54.4 kg (120 lb) 08/26/2024 1:42 PM HUMAN CAPITAL MANAGER Height 157.5 cm (5' 2.01 ) 08/26/2024 1:42 PM CS T Body Mass Index 21.94 08/26/2024 1:42 PM HUMAN CAPITAL MANAGER Plan of Treatment Health Maintenance Due Date Last Done Comments Hepatitis C Screening 1975 Zoster Vaccine (1 of 2) 01/18/2024 Covid-19 Vaccine (4 - 2023-2 5 season) 2024 08/21/2021, 11/02/2020, 09/22/2020 Pneumococcal vaccine <65 (3 of 3 - PCV20 or PCV21) 06/14/2024 06/14/2019, 05/21/2018 Regular Well Visit/Exam 18-64 09/15/2024, 09/14/2022, 09/13/2021, Additional history exists Lung Cancer Screening 04/17/2025 04/16/2024 Breast Cancer Screening-Mammogram 06/15/2025 06/15/2024, 05/06/2023, 04/23/2022, Additional history exists Depression Screening 08/26/2025 08/26/2024, 06/28/2024, 03/19/2024, Additional history exists DTaP/Tdap/Td Vaccine (2 - Td or Tdap) 06/26/2028 06/26/2018 Colon Cancer Screening-Colonoscopy 01/30/20332022 Influenza Vaccine Completed 06/28/2024, , 05/24/2022, Additional history exists Hepatitis B Screening Completed 08/21/2024 Medical Devices Implanted Type Area Forensic Ballistics Expert Device Identifier Shelf Expiration Date Model / Serial / Lot [employer] 1.32mm 4.8mm Modify Ear T Tube Ventilation Ultrasil Sterile Blue [id number] - [id number] Implanted:Qty: 1 on 06/15/2023 by Nona Sewell DO at [facility] Left: Ear [employer] 04/04/2033 [id number] / / [id number] [employer] 1.32mm 4.8mm Modify Ear T Tube Ventilation Ultrasil Sterile Blue [id number] - [id number] Implanted:Qty: 1 on 06/15/2023 by Nona Sewell DO at [facility] [employer] 04/04/2033 [id number] / / [id number] Procedures Procedure Name Priority Date/Time Associated Diagnosis Comments VITAMIN B12 Routine 08/21/2024 7:37 AM HUMAN CAPITAL MANAGER Annual physical exam B12 deficiency VITAMIN D 25 HYDROXY Routine 08/21/2024 7:37 AM HUMAN CAPITAL MANAGER Annual physical exam Vitamin D deficiency CHOLESTEROL, LDL, DIRECT Routine 08/21/2024 7:37 AM HUMAN CAPITAL MANAGER Annual physical exam COMPREHENSIVE METABOLIC PANEL Routine 08/21/2024 7:37 AM HUMAN CAPITAL MANAGER Annual physical exam HEPATITIS B SURFACE ANTIGEN Routine 08/21/2024 7:37 AM HUMAN CAPITAL MANAGER Need for hepatitis B screening test HEPATITIS B CORE ANTIBODY, TOTAL Routine 08/21/2024 7:37 AM HUMAN CAPITAL MANAGER Need for hepatitis B screening test HEPATITIS B SURFACE ANTIBODY (IMMUNE STATUS) Routine 08/21/2024 7:37 AM HUMAN CAPITAL MANAGER Need for hepatitis B screening test SCREENING [...] core antibody, total Blood (08/21/2024 7:37 AM HUMAN CAPITAL MANAGER) Hep B core IgG/IgM NON-REACTI VE NON-REACTI VE [facility] Comment: For additional information, please refer to http://education.Insp[employer]/faq/TQZ591 (This link is being provided for informational/ educational purposes only.) Blood 08/21/2024 7:37 AM HUMAN CAPITAL MANAGER 08/21/2024 7:38 AM HUMAN CAPITAL MANAGER Narrative [facility] - 08/22/2024 5:53 AM HUMAN CAPITAL MANAGER FASTING:YES FASTING: YES us Alvarez [facility] MICROBIOLOGY - GENE RAL ORDERABLES Final Result [facility] [address] [address] * Vitamin D 25 hydroxy (08/21/2024 7:37 AM HUMAN CAPITAL MANAGER) Vitamin D 25-OH 31 30 - 100 ng/mL [facility] Comment: Vitamin D Status 25-OH Vitamin D: Deficiency: <20 ng/mL Insufficiency: 20 - 29 ng/mL Optimal: > or = 30 ng/mL For 25-OH Vitamin D testing on patients on D2-supplementation and patients for whom quantitation of D2 and D3 fractions is required, the [facility](TM) 25-OH VIT D, (D2,D3), LC/MS/MS is recommended: order code 60916 (patients >2yrs). See Note 1 Note 1 For additional information, please refer to http://Absolute Antibody.regrob.com/faq/LIU435 (This link is being provided for informational/ educational purposes only.) Blood 08/21/2024 7:37 AM HUMAN CAPITAL MANAGER 08/21/2024 7:38 AM HUMAN CAPITAL MANAGER Narrative [facility] - 08/22/2024 5:53 AM HUMAN CAPITAL MANAGER FASTING:YES FASTING: YES Alvarez [facility] BLOOD ORDERABLES Fi nal Result Performing Organization Address [facility]/ZIP Co de Phone Number [facility] [address] [place] [address] * Hepatitis B surface antibody (immune status) Blood (08/21/2024 7:37 AM HUMAN CAPITAL MANAGER) Pathologist [facility] HBsAb (immune status) NON-REACTI VE NON-REACTI VE [facility] Blood 08/21/2024 7:37 AM HUMAN CAPITAL MANAGER 08/21/2024 7:38 AM HUMAN CAPITAL MANAGER Narrative [facility] - 08/22/2024 5:53 AM HUMAN CAPITAL MANAGER FASTING:YES FASTING: YES Alvarez [facility] MICROBIOLOGY - GENE RAL ORDERABLES Final Result Performing Organization Address [facility] Co de Phone Number [facility] [address] [place] [address] * Hepatitis B Surface Antigen Blood (08/21/2024 7:37 AM HUMAN CAPITAL MANAGER) HepBsAg NON-REACTI VE NON-REACTI VE [facility] Comment: For additional information, please refer to http://Absolute Antibody.In[employer]/faq/WST281 (This link is being provided for informational/ educational purposes only.) Blood 08/21/2024 7:37 AM HUMAN CAPITAL MANAGER 08/21/2024 7:38 AM HUMAN CAPITAL MANAGER Narrative [facility] - 08/22/2024 5:53 AM HUMAN CAPITAL MANAGER FASTING:YES FASTING: YES Alvarez [facility] MICROBIOLOGY - GENE RAL ORDERABLES Final Result Performing Organization Address [facility] de Phone Number [email or web address] [address] [place] [address] * (ABNORMAL) Cholesterol, LDL, direct (08/21/2024 7:37 AM HUMAN CAPITAL MANAGER) LDL, direct 103(H) <100 mg/dL [facility] Comment: Desirable range <100 mg/dL for primary prevention; <70 mg/dL for patients with CHD or diabetic patients with > or = 2 CHD risk factors. Blood 08/21/2024 7:37 AM HUMAN CAPITAL MANAGER 08/21/2024 7:38 AM HUMAN CAPITAL MANAGER Narrative [facility] - 08/22/2024 5:53 AM HUMAN CAPITAL MANAGER FASTING:YES FASTING: YES Alvarez [facility] BLOOD ORDERABLES Fi nal Result Performing Organization Address [facility] de Phone Number [facility] [address] [place] [address] * Vitamin B12 (08/21/2024 7:37 AM HUMAN CAPITAL MANAGER) Vitamin B12 468 200 - 1,100 pg/mL [facility] Blood 08/21/2024 7:37 AM HUMAN CAPITAL MANAGER 08/21/2024 7:38 AM HUMAN CAPITAL MANAGER Narrative [facility] - 08/22/2024 5:53 AM HUMAN CAPITAL MANAGER FASTING:YES FASTING: YES Alvarez [facility] BLOOD ORDERABLES Fi nal Result Performing Organization Address [facility] de Phone Number [email or web address] [address] [place] [address] * Comprehensive metabolic panel (08/21/2024 7:37 AM HUMAN CAPITAL MANAGER) Glucose 82 65 - 99 mg/dL [facility] Comment: Fasting reference interval BUN 10 7 - 25 mg/dL [facility] Creatinine 0.67 0.50 - 1.03 mg/dL [facility] eGFR 106 > OR = 60 mL/min/1. 73m2 [facility] BUN/creat ratio SEE NOTE: 6 - 22 (calc) [facility] Comment: Not Reported: [...] [facility] Blood 08/21/2024 7:37 AM HUMAN CAPITAL MANAGER 08/21/2024 7:38 AM HUMAN CAPITAL MANAGER Narrative [facility] - 08/22/2024 5:53 AM HUMAN CAPITAL MANAGER FASTING:YES FASTING: YES Alvarez [facility] BLOOD ORDERABLES Fi nal Result [facility] [address] [address] * Screening Mammogram Bilateral W [place] W Implants (06/15/2024 9:15 AM CDT) Anatomical Region Laterality Modality Breast Bilateral Mammography 06/17/2024 11:3 4 AM HUMAN CAPITAL MANAGER Impressions 06/17/2024 11:34 AM HUMAN CAPITAL MANAGER There is no mammographic evidence of malignancy. A 1 year screening mammogram is recommended. BI-RADS: 1 - Negative. The patient has been or will be contacted. The patient will be entered into a reminder system with a target due date of 1 year for her next mammogram. Electronically signed by: Neyda Koch M.D. Narrative 06/17/2024 11:34 AM HUMAN CAPITAL MANAGER EXAMINATION: SCREENING MAMMOGRAM BILATERAL W ITALO W [...] by Cosmo Cruz M.D. JR: Report ID: [id number] Reading Location: [place] [address] Procedure Note Cosmo Cruz MD - 04/17/2024 [...] by Cosmo Cruz M.D. JR: Report ID: [id number] Reading Location: [place] [address] Alvarez VILLARRE[facility] CT PROCEDURES Final Result * COLONOSCOPY (01/30/2023 7:39 AM CDT) Anatomical Region Laterality Modality Other Narrative Procedure Note Claudia Ibrahim MD - 01/30/2023 7:[address] [facility] Patient Name: Guido Bustillo Procedure Date: 01/30/2023 7:39 AM Date of : 1975 Admit Type: Outpatient Age: 48 Gender: Female Attending MD: Claudia Ibrahim M.D. Room: [facility] 3 Note Status: Finalized Patient Profile: This is a 48 year old female hx of depression, hypertension, HLD, COPD, tobacco use disorder herefor colonoscopy. No family history of colon cancer. Procedure: Colonoscopy Indications: Screening for colorectal malignant neoplasm, Thisis the patient's first colonoscopy Referring MD: Alvarez Galvez PA-C Providers: Claudia Ibrahim M.D. Impression: - Perianal [...] procedure were verified by the physician, the computerized table cutter and the vibration technician in the endoscopy suite. Mental Status [...] under direct vision. The Pediatric Colonoscope [id number] was introducedthrough the anus and advanced to the the cecum, identifiedby appendiceal orifice and ileocecal valve. The scopewas passed under direct vision. The Wide Endoscope [id number] was introduced through theanus and advanced to [...] 7:39 AM Procedure Code(s): --- Professional --- 72015, Colonoscopy, flexible; with removal of tumor(s), polyp(s), or other lesion(s) by snare technique 24476, 59, Colonoscopy, flexible; with biopsy, single or multiple --- Technical --- 27714, Colonoscopy, flexible; with removal of tumor(s), polyp(s), or other lesion(s) by snare technique 65409, 59, Colonoscopy, flexible; with biopsy, single or [...] Residual hemorrhoidal skin tags CPT copyright 2020 [employer]. All rights reserved. The codes documented in this report are preliminary and upon buildings and grounds director reviewmay be revised to meet current compliance requirements. Recognized by the [employer] for promoting quality in endoscopy Claudia Ibrahim MD ENDOSCOPY PROCEDURES Final Resul t from Last 3 Months or Most Recently Relevant to Health Maintenance Insurance [employer] [facility] HMO Advance Directives For more information, please contact: [phone] * Full Code (Latest Code Status on File) Date Activated Date Inactivated Comments 01/30/2023 7:44 AM 01/30/2023 2:16 PM * Full Code Date Activated Date Inactivated Comments 01/30/2023 7:44 AM 01/30/2023 7:44 AM Care Teams Center Machine Set Up Operator Relationship Specialty Start Date End Date Alvarez Galvez PA [address] [place] [address] [address] SALEH [address] [place] [id number] PCP - General Internal Medicine 05/11/22
--- OUTSIDE RECORDS SUMMARY | 2024-10-23 19:11 | XMS_ITS | Clinical Summary ---
Author Organization [facility] Address [address] [place] [address] Phone Care Team Providers Care Plate Filler Name Role Phone Unavailable Unavailable Unavailable Reason for Visit and Chief Complaint NEW PATIENT VISIT Plan of Treatment No Plan of [...] Date Check-In Time Check- Out Time Diagnosis NEW PATIENT VISIT [facility] 7 10:30AM 11:59PM Clinical Notes Includes: Clinical Notes from this encounter No Clinical Notes Recorded
--- OUTSIDE RECORDS SUMMARY | 2024-10-23 19:11 | XMS_ITS | Clinical Summary ---
Author Organization [facility] Address [address] [place] [address] Phone Care Team Providers Care Relief Master Name Role Phone Unavailable Unavailable Unavailable Reason [...] from this encounter No Physical Exam Recorded Clinical Notes Includes: Clinical Notes from this encounter No Clinical Notes Recorded
--- OUTSIDE RECORDS SUMMARY | 2024-10-23 19:11 | XMS_ITS | Clinical Summary ---
Author Organization [facility] Address [address] [place] [address] Phone Care Team Providers Care Care Process Manager Name Role Phone Unavailable Unavailable Unavailable Reason [...] Out Time Diagnosis GENERAL OFFICE VISIT [facility]AYDEE FINN DO [facility] 0 4:51PM 11:59PM Clinical Notes Includes: Clinical Notes from this encounter No Clinical Notes Recorded
--- OUTSIDE RECORDS SUMMARY | 2024-10-23 19:12 | XMS_ITS ---
Author Organization [facility] Address [address] [place] [address] Phone Care Team Providers Care Critical Care Nurse Name Role Phone Unavailable Unavailable Unavailable Plan [...]
--- OUTSIDE RECORDS SUMMARY | 2024-10-23 19:12 | XMS_ITS | Clinical Summary ---
Author Organization [facility] Address [address] [place] [address] Phone Care Team Providers Care Fish Cleaner Name Role Phone Unavailable Unavailable Unavailable Reason [...]
--- OUTSIDE RECORDS SUMMARY | 2024-10-23 19:12 | XMS_ITS ---
Care Plan - [facility] Created on: October 23, 2024 GUIDO BAUTISTA : 1975 Sex: Female Author Organization [facility] Address [address] [place] [address] Phone Care Team Providers Care Pottery Striper Name Role Phone Unavailable Unavailable Unavailable
--- OUTSIDE RECORDS SUMMARY | 2024-10-23 19:12 | XMS_ITS | Clinical Summary ---
Author Organization [facility] Address [address] [place] [address] Phone Care Team Providers Care Leak Patcher Name Role Phone Unavailable Unavailable Unavailable Reason [...] Diagnosis GENERAL OFFICE VISIT HAYDEE FINN DO [facility] 0 4:51PM 11:59PM Clinical Notes Includes: Clinical Notes from this encounter No Clinical Notes Recorded
--- OUTSIDE RECORDS SUMMARY | 2024-10-23 19:12 | XMS_ITS | Clinical Summary ---
Author Organization [facility] Address [address] [place] [address] Phone Care Team Providers Care Bsa/Aml Compliance Officer Name Role Phone Unavailable Unavailable Unavailable Reason [...]
--- OUTSIDE RECORDS SUMMARY | 2024-10-23 19:12 | XMS_ITS ---
Author Organization Unknown Medications Medication Instructions Effective Dates (start - stop) Status 24 HR venlafaxine 150 MG Ext ended Release Oral Capsule - Completed quetiapine 25 MG Oral Tablet [id number] 0:00:00Z - Completed quetiapine 25 MG Oral Tablet [id number] 0:00:00Z - Completed quetiapine 25 MG Oral Tablet [id number] 0:00:00Z - Completed losartan potassium 25 MG [...] Compl eted quetiapine 25 MG Oral Tablet [id number] 0:00:00Z - Completed buspirone hydrochloride 7.5 MG Oral Tablet - Completed quetiapine 25 MG Oral Tablet [id number] 0:00:00Z - Completed - - Compl eted 24 HR venlafaxine 150 MG Ext ended Release Oral Capsule - Completed Patient Care team information Name Category Status Period Participants - - Proposed period not known -
--- OUTSIDE RECORDS SUMMARY | 2024-10-23 19:13 | XMS_ITS | Clinical Summary ---
Author Organization [facility] Address [address] [place] [address] Phone Care Team Providers Care Domestic Freight Forwarder Name Role Phone Unavailable Unavailable Unavailable Reason [...]
--- OUTSIDE RECORDS SUMMARY | 2024-10-23 19:13 | XMS_ITS | Clinical Summary ---
Author Organization [facility] Address [address] [place] [address] Phone Care Team Providers Care Foam Machine Operator Name Role Phone Unavailable Unavailable Unavailable Reason [...]
[2024-10-23 19:24] LABS: EDUAAPPEAR Cloudy; EDUABILI 1+ (Negative); EDUABLOOD 3+ (Negative); EDUACOLOR1 Brown; EDUAGLUCOSE Negative (Negative); EDUAKETONE Trace (Negative); EDUALEUKO 1+ (Negative); EDUANITRATE Negative (Negative); EDUAPH 5.5; EDUAPROTEIN 2+ (Negative)
--- NOTE | 2024-10-23 19:26 | ED_ITS ---
HPI - Female Genitourinary General Chief complaint: Urogenital-Female Stated complaint: Urinary Problem Source: patient and RN notes reviewed Mode of arrival: ambulatory Limitations: no limitations History of Present Illness HPI Narrative: 49-year-old female presented for complaint of burning with urination, frequency and urgency over the past 3 days, and noted blood in the urine today. Patient says the symptoms improve yesterday. Endorses mild right flank pain. Denies nausea, vomiting, abdominal pain, constipation, diarrhea, fevers or chills. History of hysterectomy, denies concern for STD. Related Data Home Medications ?Medication ?Instructions ?Recorded ?Confirmed ?Last Taken ?Type simvastatin 10/20/19 Unknown History venlafaxine 10/20/19 Unknown History losartan 25 mg tablet mg 10/23/24 Unknown History venlafaxine 150 mg mg PO 10/23/24 Unknown History capsule,extended release 24 hr Allergies Allergy/AdvReac Type Severity Reaction Status Date / Time naproxen Allergy Unknown Verified 10/23/24 19:12 NAPROXEN SODIUM Allergy Unknown Uncoded 10/23/24 19:12 Review of Systems Review of Systems: CONSTITUTIONAL: Denies body aches, fever, chills, or sweats. CARDIOVASCULAR: Denies chest pain, palpitations, or edema. RESPIRATORY: Denies cough or dyspnea. GASTROINTESTINAL: Denies abdominal pain, nausea, vomiting, or diarrhea. GENITOURINARY: Reports dysuria, frequency, urgency, hematuria, flank pain SKIN: Denies rash, itching, or wounds. MUSCULOSKELETAL: Denies back pain or myalgia. [facility] Social History Social History Gender identity (if verbalized by the patient): Female Comments At time of signature, I have reviewed and agree with nursing past medical, surgical, social and family history unless otherwise noted. Please see nursing chart for further information. There is no relevant family history pertinent to the presenting complaint Exam Narrative: GENERAL: Well-appearing ENT: Mucous membranes pink and moist. NECK: Normal AROM. Supple. CHEST: No respiratory distress. Clear to auscultation. HEART: Regular rate and rhythm. ABDOMEN: Soft, nondistended, normal active bowel sounds. right mid/low abd tenderness and right CVA tenderness; mild. No guarding, rigidity, asymmetry or rebound tenderness. MUSCULOSKELETAL: No bony tenderness. SKIN: Warm, dry NEURO: No focal deficits. Alert and oriented x3. Gait steady. PSYCH: Normal affect. Course Course Emergency Course: Patient is aware of diagnosis, understands and agrees to treatment plan. Anticipatory guidance given. Patient agrees to follow-up as directed and is aware of reasons to seek care at the emergency department. Portions of this record may have been created with voice recognition software Level of Care: Express Care Visit Vital Signs Vital signs: Vital Signs Temperature 97.9 F 10/23/24 19:04 Pulse Rate 109 H 10/23/24 19:04 Respiratory Rate 18 10/23/24 19:04 Blood Pressure 147/82 H 10/23/24 19:04 Pulse Oximetry 100 10/23/24 19:04 Oxygen Delivery Room Air 10/23/24 19:04 Temperature 97.9 F 10/23/24 19:04 Pulse Rate 109 H 10/23/24 19:04 Respiratory Rate 18 10/23/24 19:04 Blood Pressure 147/82 H 10/23/24 19:04 Pulse Oximetry 100 10/23/24 19:04 Oxygen Delivery Room Air 10/23/24 19:04 Reviewed MDM - Female Genitourinary MDM Narrative Medical decision making narrative: Discussed physical exam findings And urine dip. Advised supportive measures and signs/symptoms to go to the ER. Pt is appropriate for outpt treatment and f/u. Differential Diagnosis Differential diagnosis: Likely urinary tract infection, cystitis and other ( pyelonephritis, renal colic, nephrolithiasis) Lab Data Labs: Lab Results 10/23/24 Range/Units 19:22 POC Urine Color Brown POC Urine Clarity Cloudy POC Urine pH 5.5 POC Ur Specif [place] 1.030 POC Urine Protein 2+ (Negative) POC Ur Glucose (UA) Negative (Negative) POC Urine Ketones Trace (Negative) POC Urine Blood 3+ (Negative) POC Urine Nitrite Negative (Negative) POC Urine Bilirubin 1+ (Negative) POC Urine Urobilinogen 1.0 POC U Leukocyte Esteras 1+ (Negative) Discharge Plan Discharge Clinical Impression: Urinary tract infection Patient Disposition: Home, Self-Care Condition: Stable Instructions: Antibiotic Form, Urinary Tract Infection in Women (ED), Kidney Infection (ED) Additional Instructions: Take the antibiotic as prescribed The urine will be sent of for a culture to identify what type of bacteria is causing your infection. If the culture shows that the antibiotic will not get rid of your infection, you will be notified and a new antibiotic will be called in for you. Increase water intake you will need to follow up with your PCP, call to schedule an appointment. Go to the ER for any worsening symptoms or concerns Patient Language: Setswana Prescriptions: New ciprofloxacin HCl [Cipro] 500 mg tablet 500 mg PO Q12H 7 Days Qty: 14 0RF No Action simvastatin venlafaxine venlafaxine 150 mg capsule,extended release 24hr PO losartan 25 mg tablet Follow-up/Referrals: PHYSICIAN NOT ON STAFF,NONSTAFF [Primary Care Provider] - Time of Disposition: 19:34
== END 2024-10-23 19:38 | disposition home or self-care (01) ==
PROVIDERS: Emergency Provider Nurse Practitioner Family
DX: N39.0 Urinary tract infection, site not specified (principal); B96.1 Klebsiella pneumoniae [K. pneumoniae] as the cause of diseases classified elsewhere
CPT/HCPCS: 81003; 87077; 87086; 87186; 99213; G0463